=== PATIENT | female | born 1970 | race Caucasian/White ===

== ENCOUNTER 2018-10-19 12:11 | Inpatient (IN) | payer OTHER ==
--- NOTE | 2018-10-19 12:30 | PDOC ---
*Physical Exam - Vital Signs Last Vital Signs Temp Pulse Resp BP Pulse Ox 98.3 F 69 16 118/75 97 10/19/18 12:18 10/19/18 12:18 10/19/18 12:18 10/19/18 12:18 10/19/18 12:18 - Physical Exam Comments: 10/19/18 12:29 The patient was examined by DEDRICK Martin under my direct supervision. I personally evaluated the patient. I concur with the above findings and the plan of care. ED Treatment Course - LABORATORY CBC & Chemistry Diagram: 10/21/18 06:30 10/21/18 06:30 *DC/Admit/Observation/Transfer Diagnosis at time of Disposition: Slurred speech - Discharge Dispostion Condition at time of disposition: Stable - Referrals - Patient Instructions - Post Discharge Activity
--- NOTE | 2018-10-19 13:46 | PDOC ---
History of Present Illness <Montez Zeng - Last Filed: 10/19/18 16:23> - General History Source: Patient - History of Present Illness Timing/Duration: other (2 days) Associated Symptoms: reports: headaches. denies: nausea/vomiting <Liv Mahoney - Last Filed: 10/19/18 16:43> - General Chief Complaint: Weakness Stated Complaint: SLURRED SPEECH Time Seen by Provider: 10/19/18 12:28 NIH Stroke Scale - Last Known Well Date/Time & Onset Date Last Known Well: 10/17/18 Time Last Known Well: 10:00 - Initial Evaluation Level of consciousness: Alert Ask patient the month and their age: Answers both correctly Ask patient to open & close eyes; make fist and let go: Obeys both correctly Best gaze (horizontal eye movement): Normal Visual field testing: No visual field loss Facial paresis (Show teeth/raise eyebrows/close eyes tight): Minor paralysis ( flattened nasolabial fold, asymmetry on smiling) Motor Function: Left Arm: Normal Motor Function: Right Arm: Drift Motor Function: Left Leg: Normal (extends leg 30 degrees for 5 seconds without drift) Motor Function: Right Leg: Normal (extends leg 30 degrees for 5 seconds without drift) Limb Ataxia: No ataxia Sensory(Use pinprick test arms,legs,trunk,face/side to side): Normal Best language (Describe picture, name items, read sentences): No Aphasia Dysarthria (read several words): Mild to moderate slurring of words Extinction and Inattention: No abnormality - Total Score NIH Stroke Scale Score: 3 <Montez Zeng - Last Filed: 10/19/18 16:23> tPA Exclusion checklist 3-4.5h - Time Elapsed Date last known well: 10/17/18 Time last known well: 10:00 Elaspsed time: 2 Day(s) and 6 Hour(s) and 23 Minutes - Thrombolytic Therapy Candidate Is patient eligible for thrombolytic therapy: No - Exclusion Criteria 3-4.5 hr SBP greater than 185 or DBP greater than 110mmHg despite tx: No Recent IC/spinal surgery,head trauma or stroke<3mos.: No Hx IC hemorrhage, IC neoplasm, AV malformation or aneurysm: No Active internal bleeding: No Blding diathesis(low plt ct, inc PTT,INR>1.7 or use of NOAC): No Symptoms suggest subarachnoid hemorrhage: No CT demonstrates multilobar infarct(>1/3 cerebral hemiphere): No Arterial puncture at noncompressible site in previous 7 days: No Blood glucose concentration less than 50mg/dL (2.7mmol/L): No - Relative Exclusion Criteria 3-4.5 hr Life expectancy <1 yr or severe co-morbid illness: No : No Patient/family refused: No Rapid improvement: No Stroke severity too mild: Yes Recent acute VA (w/in previous 3 months): No Seizure at onset with postictal residual neuro impairments: No Major surgery or serious trauma w/in previous 14 days: No Recent GI or hemorrhage (w/in previous 21 days): No - Add'l Relative Exclusion 3-4.5 hr Age > 80: No Hx of both diabetes AND prior ischemic stroke: No Taking an oral anticoagulant regardless of INR: No NIHSS >25: No - Ineligibility reason(s) Reasons No tPA given: Outside of window - delayed arrival <Montez Zeng - Last Filed: 10/19/18 16:23> Past History <Montez Zeng - Last Filed: 10/19/18 16:23> - Past Medical History COPD: No CHF: No Psychiatric Problems: Yes (BIPOLAR) Other medical history: HYPOTHYROID - Immunization History Immunization Up to Date: No - Suicide/Smoking/Psychosocial Hx Smoking Status: Yes Smoking History: Never smoked Number of Cigarettes Smoked Daily: 10 Hx Alcohol Use: No Drug/Substance Use Hx: No <Liv Mahoney - Last Filed: 10/19/18 16:43> - Past Medical History Allergies/Adverse Reactions: Allergies Allergy/AdvReac Type Severity Reaction Status Date / Time Penicillins Allergy Verified 10/19/18 12:18 Home Medications: Ambulatory Orders Aripiprazole [Abilify -] 20 mg PO DAILY 05/27/13 Bupropion HCl [Wellbutrin Xl] 450 mg PO DAILY 05/27/13 Levothyroxine Sodium [Synthroid] 88 mcg PO DAILY 10/19/18 [place] Carbonate [Eskalith -] 900 mg PO HS 10/19/18 Review of Systems - Review of Systems Constitutional: No: Fever Respiratory: No: Shortness of Breath Cardiac (ROS): No: Chest Pain Neurological: Yes: Headache, Ataxia. No: Numbness, Seizure, Tremors, Dizziness <Liv Mahoney - Last Filed: 10/19/18 16:43> *Physical Exam - Vital Signs Last Vital Signs Temp Pulse Resp BP Pulse Ox 98.3 F 69 16 118/75 97 10/19/18 12:18 10/19/18 12:18 10/19/18 12:18 10/19/18 12:18 10/19/18 12:18 <Montez Zeng - Last Filed: 10/19/18 16:23> - Vital Signs Last Vital Signs Temp Pulse Resp BP Pulse Ox 98.3 F 69 16 118/75 97 10/19/18 12:18 10/19/18 12:18 10/19/18 12:18 10/19/18 12:18 10/19/18 12:18 - Physical Exam General Appearance: Yes: Appropriately Dressed. No: Apparent Distress Neck: positive: Supple Respiratory/Chest: negative: Respiratory Distress Neurologic: positive: Fully Oriented, Alert, Normal Mood/Affect, Motor Strength 5/5, Finger to Nose, Other (fingers mildly tremulous b/l on exam but no obvious drift, no obvious faial asymmetry). negative: Facial Droop (No ataxia, no drift ), Sensory Deficit, Confused, Disoriented <Liv Mahoney - Last Filed: 10/19/18 16:43> Moderate Sedation - Procedure Monitoring Vital Signs: Procedure Monitoring Vital Signs Temperature 98.3 F 10/19/18 12:18 Pulse Rate 69 10/19/18 12:18 Respiratory Rate 16 10/19/18 12:18 Blood Pressure 118/75 10/19/18 12:18 O2 Sat by Pulse Oximetry (%) 97 10/19/18 12:18 <Montez Zeng - Last Filed: 10/19/18 16:23> - Procedure Monitoring Vital Signs: Procedure Monitoring Vital Signs Temperature 98.3 F 10/19/18 12:18 Pulse Rate 69 10/19/18 12:18 Respiratory Rate 16 10/19/18 12:18 Blood Pressure 118/75 10/19/18 12:18 O2 Sat by Pulse Oximetry (%) 97 10/19/18 12:18 <Liv Mahoney - Last Filed: 10/19/18 16:43> ED Treatment Course - LABORATORY CBC & Chemistry Diagram: 10/19/18 13:32 10/19/18 13:32 - ADDITIONAL ORDERS Additional order review: Laboratory Results 10/19/18 10/19/18 10/19/18 13:38 13:32 13:32 Sodium Potassium Chloride Carbon Dioxide Anion Gap BUN Creatinine Creat Clearance w eGFR Random Glucose Hemoglobin A1c % 4.9 Calcium Total Bilirubin AST ALT Alkaline Phosphatase Total Protein Albumin TSH 1.78 Resin T3 Uptake Serum , Qual Urine Color Yellow Urine Appearance Slcloudy Urine pH 6.0 Ur Specific [place] 1.028 Urine Protein 1+ H Urine Glucose (UA) Negative Urine Ketones Negative Urine Blood Negative Urine Nitrite Negative Urine Bilirubin Negative Urine Urobilinogen Negative Ur Leukocyte Esterase Trace Urine WBC (Auto) 6 Urine RBC (Auto) 8 Ur Epithelial Cells Rare Urine Bacteria Rare Hyaline Casts 3 Urine Mucus Few Alcohol, Quantitative 10/19/18 10/19/18 13:32 13:32 Sodium 139 Potassium 4.5 Chloride 108 H Carbon Dioxide 27 Anion Gap 4 L BUN 10 Creatinine 0.9 Creat Clearance w eGFR > 60 Random Glucose 85 Hemoglobin A1c % Calcium 8.3 L Total Bilirubin 0.3 AST 44 H ALT 32 Alkaline Phosphatase 52 Total Protein 6.8 Albumin 3.5 TSH Resin T3 Uptake 34.4 Serum , Qual Negative Urine Color Urine Appearance Urine pH Ur Specific [place] Urine Protein Urine Glucose (UA) Urine Ketones Urine Blood Urine Nitrite Urine Bilirubin Urine Urobilinogen Ur Leukocyte Esterase Urine WBC (Auto) Urine RBC (Auto) Ur Epithelial Cells Urine Bacteria Hyaline Casts Urine Mucus Alcohol, Quantitative < 3.0 10/19/18 13:32 RBC 4.28 MCV 91.5 MCHC 32.3 RDW 13.9 MPV 7.8 Neutrophils % 69.5 Lymphocytes % 20.6 Monocytes % 6.1 Eosinophils % 2.6 Basophils % 1.2 <Monetz Zeng - Last Filed: 10/19/18 16:23> - LABORATORY CBC & Chemistry Diagram: 10/19/18 13:32 10/19/18 13:32 - RADIOLOGY Radiology Studies Ordered: Category Date Time Status HEAD CT WITHOUT CONTRAST [CT] Stat CT Scan 10/19/18 13:05 Ordered <Liv Mahoney - Last Filed: 10/19/18 16:43> Medical Decision Making - Medical Decision Making 10/19/18 13:41 48 yo F, h/o bipolar on lithium, here w/ slurred speech x 2 days. Also reports vague JORDAN and that "I am tripping over my feet" per pt. No dizziness, vertigo, visual changes, sensory changes or focal weakness. States she did not come in earlier because "I didn't think it was anything" per pt. State she saw her psychiatrist this am who told her to come in for labs including lithium lvl. Last lithium level was ~2 months ago and nl per pt. States she has not been on meds that long See exam Slurred speech w/ ataxia and JORDAN x 2 days Slow speech in ED and mildly tremulous fingers b/l, no obvious ataxia and non- focal R/o CVA, r/o lithium toxicity -CT[facility] -labs -dispo pending 10/19/18 14:54 10/19/18 15:47 Labs and CTH unremarkable. [place] pending and m/l will not come back today. Pt evaluated by Dr Rosales who states based on his exam, pt has minor facial asymmetry and ?RUE drift. DTRs appears intact. Suspects CVA. Will get neuro c/s for MRI and admit at this time. Dr Walter, pt's outside psych, made aware of disposition. <Lvi Mahoney - Last Filed: 10/19/18 16:43> *DC/Admit/Observation/Transfer <Montez Zeng - Last Filed: 10/19/18 16:23> - Discharge Dispostion Decision to Admit order: Yes <Liv Mahoney - Last Filed: 10/19/18 16:43> Diagnosis at time of Disposition: Slurred speech - Discharge Dispostion Condition at time of disposition: Fair
[2018-10-19 13:51] LABS: BASO % 1.2 % (0-2.0); EOS % 2.6 % (0-4.5); HEMATOCRIT 39.2 % (32.4-45.2); HEMOGLOBIN 12.7 GM/dL (10.7-15.3); LYMPH % 20.6 % (8-40); MCH 29.6 pg (25.7-33.7); MCHC 32.3 g/dl (32.0-36.0); MEAN CELL VOLUME 91.5 fl (80-96); MEAN PLT VOLUME 7.8 fl (7.5-11.1); MONO % 6.1 % (3.8-10.2); NEUT % 69.5 % (42.8-82.8); PLATELET COUNT 284 K/MM3 (134-434); RBC 4.28 M/mm3 (3.60-5.2); RDW 13.9 % (11.6-15.6)
[2018-10-19 13:57] LABS: URINE APPEARANCE SLCLOUDY; URINE BILIRUBIN NEGATIVE (<2.0 mg/dL); URINE COLOR YELLOW; URINE GLUCOSE (UA) NEGATIVE (NEGATIVE); URINE KETONE NEGATIVE (NEGATIVE); URINE LEUK ESTERASE TRACE (NEGATIVE); URINE NITRITE NEGATIVE (NEGATIVE); URINE PROTEIN 1+ (NEGATIVE); URINE UROBILINOGEN NEGATIVE mg/dL (0.2-1.0)
[2018-10-19 14:05] LABS: EPI CELLS RARE /HPF (FEW); URINE BACTERIA RARE /hpf (NONE SEEN); URINE HYALINE CAST 3 /lpf; URINE MUCUS FEW
[2018-10-19 14:34] LABS: ALBUMIN 3.5 g/dl (3.4-5.0); ALK PHOS 52 U/L (45-117); ANION GAP 4 MMOL/L (8-16); BILIRUBIN,TOTAL 0.3 mg/dL (0.2-1); BLOOD UREA NITROGEN 10 mg/dL (7-18); CALCIUM 8.3 mg/dL (8.5-10.1); CHLORIDE 108 mmol/L (98-107); CO2 27 mmol/L (21-32); CREATININE 0.9 mg/dL (0.55-1.3); GLUCOSE,RANDOM 85 mg/dL (74-106); POTASSIUM 4.5 mmol/L (3.5-5.1); SGOT/AST 44 U/L (15-37); SGPT/ALT 32 U/L (13-61); SODIUM 139 mmol/L (136-145); TOT PROT 6.8 g/dl (6.4-8.2)
[2018-10-19] MEDS ORDERED: ASPIRIN 325 MG TABLET PO ONE (16:25)
[2018-10-19] MEDS ORDERED: ASPIRIN 325 MG TABLET ONE (16:40)
--- NOTE | 2018-10-19 16:42 | HP ---
CHIEF COMPLAINT: Slurred speech x2 days Psychiatrist/PCP: Dr Powers in [place] [phone] HISTORY OF PRESENT ILLNESS: Pt is a 48 yo obese F, with PMHx of hypothyroidism , bipolar disorder (recently started on lithium), presenting with slurred speech and abnormal gait x 2 days. Pt describes a sudden slurring of her speech she said noticed also by her . No dysphagia, no difficulty swallowing. No prior trauma, no syncope, no falls. No prior URTI, no ear ache. She describes an associated L sided vague headache, increased forgetfulness for the past 2 weeks, and dizziness. No photophobia or neck stiffness. She has also noticed a tiltt to her left side while walking over the past two days that is new. No obvious weakness or heaviness, no parasthesias noted. Pt came in today after she spoke with her psychiatrist. She has been bipolar for over 20years and had been on Wellbutrin, trazodone and abilify. 2 months ago she was put on [place]. No polyuria or polyphagia. Her psychiatrist recommended lithium levels be drawn. ED spoke with Neurology- Dr Galaviz who recommended MRI ER course was notable for: (1) CT head-negative for acute pathology (2) ASA 81 (3) Recent Travel: PAST MEDICAL HISTORY: PAST SURGICAL HISTORY: B/L shoulder sx Uterine ablation April 2018 Fibroid sx Social History: Smoking: Smoked 1/2 pack x20 years, quit 1 year ago, Alcohol:Denies Drugs: Smokes marijuana Family History: Works an office job Mother 79- [place] uterus, [place] lung Father 79- Orthopedic sxs Sister-51yrs old-Breast [place] G0, Menopausal-April 2018 Allergies Penicillins Allergy (Verified 10/19/18 12:18) HOME MEDICATIONS: Home Medications Medication Instructions Recorded Aripiprazole [Abilify -] 20 mg PO DAILY 05/27/13 Bupropion HCl [Wellbutrin Xl] 450 mg PO DAILY 05/27/13 Levothyroxine Sodium [Synthroid] 88 mcg PO DAILY 10/19/18 [place] Carbonate [Eskalith -] 900 mg PO HS 10/19/18 REVIEW OF SYSTEMS CONSTITUTIONAL: Absent: fever, chills, diaphoresis, generalized weakness, malaise, loss of appetite, weight change HEENT: Absent: rhinorrhea, nasal congestion, throat pain, throat swelling, difficulty swallowing, mouth swelling, ear pain, eye pain, visual changes CARDIOVASCULAR: Absent: chest pain, syncope, palpitations, irregular heart rate, lightheadedness , peripheral edema RESPIRATORY: Absent: cough, shortness of breath, dyspnea with exertion, orthopnea, wheezing, stridor, hemoptysis GASTROINTESTINAL: Absent: abdominal pain, abdominal distension, nausea, vomiting, diarrhea, constipation, melena, hematochezia GENITOURINARY: Absent: dysuria, frequency, urgency, hesitancy, hematuria, flank pain, genital pain MUSCULOSKELETAL: Absent: myalgia, arthralgia, joint swelling, back pain, neck pain SKIN: Absent: rash, itching, pallor HEMATOLOGIC/IMMUNOLOGIC: Absent: easy bleeding, easy bruising, lymphadenopathy, frequent infections ENDOCRINE: Absent: unexplained weight gain, unexplained weight loss, heat intolerance, cold intolerance NEUROLOGIC: Absent: headache+, focal weakness or paresthesias, dizziness, unsteady gait+, seizure, mental status changes, bladder or bowel incontinence PSYCHIATRIC: Absent: anxiety, depression, suicidal or homicidal ideation, hallucinations. PHYSICAL EXAMINATION Vital Signs - 24 hr 10/19/18 12:18 Temperature 98.3 F Pulse Rate 69 Respiratory 16 Rate Blood Pressure 118/75 O2 Sat by Pulse 97 Oximetry (%) GENERAL: Obese female, Awake, alert, and fully oriented, in no acute distress. HEAD: Normal with no signs of trauma. EYES: Pupils equal, round and reactive to light, extraocular movements intact, sclera anicteric, conjunctiva clear. No lid lag. EARS, NOSE, THROAT: Ears normal, nares patent, oropharynx clear without exudates. Moist mucous membranes. NECK: Normal range of motion, supple, no JVD LUNGS: Breath sounds equal, clear to auscultation bilaterally. No wheezes, and no crackles. HEART: Regular rate and rhythm, normal S1 and S2 without murmur ABDOMEN: Obese, Soft, nontender, not distended, normoactive bowel sounds MUSCULOSKELETAL: Normal range of motion at all joints. No bony deformities or tenderness. No CVA tenderness. LOWER EXTREMITIES: 2+ pulses, warm, well-perfused. No calf tenderness. No peripheral edema. NEUROLOGICAL: Flattened nasolabial fold on R, reduced touch sensation LUE, reduced strength 4/5 LUE, No drift UE, reflexes 2+ globally. Cranial nerves II-XII intact. Slurred speech. gait wide based, with slight tilt to left. PSYCHIATRIC: Cooperative. Good eye contact. Appropriate mood and affect. NIH scale 3 CBC, BMP 10/19/18 13:32 10/19/18 13:32 Laboratory Results - last 24 hr 10/19/18 10/19/18 10/19/18 13:32 13:32 13:32 WBC 8.0 RBC 4.28 Hgb 12.7 Hct 39.2 MCV 91.5 MCH 29.6 MCHC 32.3 RDW 13.9 Plt Count 284 MPV 7.8 Absolute Neuts (auto) 5.6 Neutrophils % 69.5 Lymphocytes % 20.6 Monocytes % 6.1 Eosinophils % 2.6 Basophils % 1.2 Nucleated RBC % 0 Sodium 139 Potassium 4.5 Chloride 108 H Carbon Dioxide 27 Anion Gap 4 L BUN 10 Creatinine 0.9 Creat Clearance w eGFR > 60 Random Glucose 85 Hemoglobin A1c % Calcium 8.3 L Total Bilirubin 0.3 AST 44 H ALT 32 Alkaline Phosphatase 52 Total Protein 6.8 Albumin 3.5 TSH Resin T3 Uptake 34.4 Serum , Qual Negative Urine Color Urine Appearance Urine pH Ur Specific [place] Urine Protein Urine Glucose (UA) Urine Ketones Urine Blood Urine Nitrite Urine Bilirubin Urine Urobilinogen Ur Leukocyte Esterase Urine WBC (Auto) Urine RBC (Auto) Ur Epithelial Cells Urine Bacteria Hyaline Casts Urine Mucus Alcohol, Quantitative < 3.0 10/19/18 10/19/18 10/19/18 13:32 13:32 13:38 WBC RBC Hgb Hct MCV MCH MCHC RDW Plt Count MPV Absolute Neuts (auto) Neutrophils % Lymphocytes % Monocytes % Eosinophils % Basophils % Nucleated RBC % Sodium Potassium Chloride Carbon Dioxide Anion Gap BUN Creatinine Creat Clearance w eGFR Random Glucose Hemoglobin A1c % 4.9 Calcium Total Bilirubin AST ALT Alkaline Phosphatase Total Protein Albumin TSH 1.78 Resin T3 Uptake Serum , Qual Urine Color Yellow Urine Appearance Slcloudy Urine pH 6.0 Ur Specific [place] 1.028 Urine Protein 1+ H Urine Glucose (UA) Negative Urine Ketones Negative Urine Blood Negative Urine Nitrite Negative Urine Bilirubin Negative Urine Urobilinogen Negative Ur Leukocyte Esterase Trace Urine WBC (Auto) 6 Urine RBC (Auto) 8 Ur Epithelial Cells Rare Urine Bacteria Rare Hyaline Casts 3 Urine Mucus Few Alcohol, Quantitative Ambulatory Orders Aripiprazole [Abilify -] 20 mg PO DAILY 05/27/13 Bupropion HCl [Wellbutrin Xl] 450 mg PO DAILY 05/27/13 Levothyroxine Sodium [Synthroid] 88 mcg PO DAILY 10/19/18 [place] Carbonate [Eskalith -] 900 mg PO HS 10/19/18 traZODone HCL [Trazodone HCl] 200 mg PO HS 10/19/18 ASSESSMENT/PLAN: Pt is a 48 yo obese F, with PMHx of hypothyroidism, bipolar disorder (recently started on lithium), presenting with slurred speech and abnormal gait x 2 days. #R/O Cerebellar Stroke NIH scale 3 CT head- negative, pending MRI/MRA per neuro Neuro- Dr Galaviz on board TSH-1.78, free T3-34, HamL5x-6.9 Statins ASA PT Speech and swallow Pt out of TPA window Lipid profile EKG #bipolar disorder [place] level pending Stable at this time, consider Psych input #Hypothyroidism Resume synthroid TSH, free T3- wnl #Obesity BMI-40.4 Weight loss counselling #FEN No standing fluids Monitor lytes, replete as needed Sodium free diet #DVT Lovenox 40sq #Dispo Tele Obs Visit type - Emergency Visit Emergency Visit: Yes ED Registration Date: 10/19/18 Care time: The patient presented to the Emergency Department on the above date and was hospitalized for further evaluation of their emergent condition. - New Patient This patient is new to me today: Yes Date on this admission: 10/19/18 - Critical Care Critical Care patient: No
--- NOTE | 2018-10-19 18:11 | EKG ---
Test Reason : Blood Pressure : / mmHG Vent. Rate : 071 BPM Atrial Rate : 071 BPM P-R Int : 196 ms QRS Dur : 086 ms QT Int : 408 ms P-R-T Axes : 062 015 009 degrees QTc Int : 443 ms NORMAL SINUS RHYTHM NORMAL ECG WHEN COMPARED WITH ECG OF 13-FEB-2011 17:20, NO SIGNIFICANT CHANGE WAS FOUND Confirmed by VALERIE SAUL MD ([id number]) on 10/19/2018 6:10:57 PM Referred By: Confirmed By:VALERIE SAUL MD
--- NOTE | 2018-10-19 19:16 | PN ---
Teaching Attending Note Name of Resident: Vera Gill ATTENDING PHYSICIAN STATEMENT I saw and evaluated the patient. I reviewed the resident's note and discussed the case with the resident. I agree with the resident's findings and plan as documented. SUBJECTIVE: Patient is a 48 year old woman with PMH of hypothyroidism, penicillin allergy and bipolar disorder on lithium, who presents with slurred speech x 2 days. Also reports vague JORDAN and that "I am tripping over my feet" per pt. No dizziness , vertigo, visual changes, sensory changes or focal weakness. States she did not come in earlier because "I didn't think it was anything" per patient. State she saw her psychiatrist this am who told her to come in for labs including lithium level. Last lithium level was ~2 months ago and normal as per patient. States she has not been on meds that long. NIHSS was 3. OBJECTIVE: Alert Vital Signs Period Temp Pulse Resp BP Sys/[place] Pulse Ox Last 24 Hr 98.3 F 69 16 118/75 97 HEENT: No Jaundice, eye redness or discharge, PERRLA, EOMI. Normocephalic, atraumatic. External ears are normal and hearing is grossly intact. No nasal discharge. Neck: Supple, nontender. No palpable adenopathy or thyromegaly. No JVD Chest: Good effort. Clear to auscultation and percussion. Heart: Regular. No S3, rub or murmur Abdomen: Not distended, soft, nontender and no HSM. No rebound or guarding. Normoactive bowel sounds. Ext: Peripheral pulses intact. No leg edema. Skin: Warm and dry. No petechiae, rash or ecchymosis. Neuro: Alert. Oriented x3. CN 2-12 grossly intact. Flattened nasolabial fold on R, reduced touch sensation LUE, reduced strength 4/5 LUE, No drift UE, reflexes 2+ globally. Slurred speech. gait wide based, with slight tilt to left. Psych: Cooperative. Good eye contact. Good insight. Appropriate mood and affect. Current Medications Generic Name Dose Route Start Last Admin Trade Name Freq PRN Reason Stop Dose Admin Aspirin 81 mg 10/20/18 10:00 Ecotrin - PO DAILY MAY Atorvastatin Calcium 80 mg 10/19/18 22:00 Lipitor - PO HS MAY Home Medications Medication Instructions Recorded Aripiprazole [Abilify -] 20 mg PO DAILY 05/27/13 Bupropion HCl [Wellbutrin Xl] 450 mg PO DAILY 05/27/13 Levothyroxine Sodium [Synthroid] 88 mcg PO DAILY 10/19/18 [place] Carbonate [Eskalith -] 900 mg PO HS 10/19/18 Abnormal Lab Results 10/19/18 10/19/18 13:32 13:38 Chloride 108 H Anion Gap 4 L Calcium 8.3 L AST 44 H Urine Protein 1+ H ASSESSMENT AND PLAN: 1. CVA - Head CT scan is negative and MRI is scheduled. No arrhythmia on EKG. Findings consistent with CVA, but she is outside the window for tPA. [place] level is pending. Got aspirin and will continue lipitor, neurochecks, speech and swallow evaluation, PT consult, fall precautions and neurology consult. Monitor on telemetry, get ECHO and carotid doppler. 2. Tobacco Use We will provide patient all the necessary assistance to facilitate smoking cessation and prescribe Nicotine patch. 3. DVT prophylaxis - Lovenox 40 mg SQ q 24 hours. 4. Advance directives - Full code 5. Obesity - Will provide patient all the necessary assistance, counseling and positive reinforcement to facilitate weight loss. Consult lead housekeeper.
[2018-10-19] MEDS ORDERED: ENOXAPARIN NA (PORCINE) 40 MG/0.4 ML DISP.SYRIN SQ ONE (20:35)
[2018-10-19] MEDS: ENOXAPARIN NA (PORCINE) 40 MG/0.4 ML DISP.SYRIN SQ SCH (20:38)
--- NOTE | 2018-10-19 21:05 | CON.NEURO ---
Consult - Alcohol/Substance Use Hx Alcohol Use: No - Smoking History Smoking history: Never smoked Aproximately how many cigarettes per day: 10 Home Medications - Allergies Allergies/Adverse Reactions: Allergies Allergy/AdvReac Type Severity Reaction Status Date / Time Penicillins Allergy Verified 10/19/18 12:18 - Home Medications Home Medications: Ambulatory Orders Aripiprazole [Abilify -] 20 mg PO DAILY 05/27/13 Bupropion HCl [Wellbutrin Xl] 450 mg PO DAILY 05/27/13 Levothyroxine Sodium [Synthroid] 88 mcg PO DAILY 10/19/18 [place] Carbonate [Eskalith -] 900 mg PO HS 10/19/18 Physical Exam-Neuro Vital Signs: Vital Signs Temperature 98.3 F 10/19/18 12:18 Pulse Rate 69 10/19/18 12:18 Respiratory Rate 16 10/19/18 12:18 Blood Pressure 118/75 10/19/18 12:18 O2 Sat by Pulse Oximetry (%) 97 10/19/18 12:18 Labs: CBC, BMP 10/19/18 13:32 10/19/18 13:32 Assessment/Plan CC Slurring of speech HPI 48 year old female hsitory of bipolar disorder, she is on abilify, wellbutrin, trazadone, synthroid , lithium. Patient was started on [place] recenlty. She denies any headahce, weakness , LOC, seizure like activity, or numbness. Lately she does complainin of memory difficulty and she has been forgetting things. ct scan of brain isnormal PAST MEDICAL HISTORY: as above PAST SURGICAL HISTORY: B/L shoulder sx Uterine ablation April 2018 Fibroid sx Social History: Smoking: Smoked 1/2 pack x20 years, quit 1 year ago, Alcohol:Denies Drugs: Smokes marijuana Family History: Works an office job Mother 79- [place] uterus, [place] lung Father 79- Orthopedic sxs Sister-51yrs old-Breast [place] G0, Menopausal-April 2018 Allergies Penicillins Allergy (Verified 10/19/18 12:18) HOME MEDICATIONS: Home Medications Medication Instructions Recorded Aripiprazole [Abilify -] 20 mg PO DAILY 05/27/13 Bupropion HCl [Wellbutrin Xl] 450 mg PO DAILY 05/27/13 Levothyroxine Sodium [Synthroid] 88 mcg PO DAILY 10/19/18 [place] Carbonate [Eskalith -] 900 mg PO HS 10/19/18 FH,ROS is normal Neurological Examination: Alert oriented x 3, no neck stiffness speech is slurred( she feels her speech is not normal), eomi, pupils reactive, no face asymmetry motor 5/5 all ext sensation is normal ct head is normal Assessment/Plan 48 year old female history of bipolar on five different medication, [place] was recently started. Neuro exam is normal, except slruring of speech. ct head is normal. CLinically, less likley to be stroke Plan: MRI of brain , further work up if mri is positive for stroke - Psych Consult , if needed for Bipolar management. Thanking you so much Jj Galaviz MD
[2018-10-19 22:16] VITALS: BMI 41.8
[2018-10-19] MEDS ORDERED: MELATONIN 5 MG TABLETS PO ONE (22:33)
[2018-10-19] MEDS: ATORVASTATIN CA 80 MG TABLET (FP) PO SCH (22:46)
[2018-10-20 07:29] LABS: HEMATOCRIT 38.6 % (32.4-45.2); HEMOGLOBIN 12.4 GM/dL (10.7-15.3); MCH 29.3 pg (25.7-33.7); MCHC 32.2 g/dl (32.0-36.0); MEAN CELL VOLUME 90.9 fl (80-96); PLATELET COUNT 248 K/MM3 (134-434); RBC 4.24 M/mm3 (3.60-5.2); RDW 13.5 % (11.6-15.6); WHITE BLOOD COUNT 6.1 K/mm3 (4.0-10.0)
[2018-10-20 07:48] LABS: PROTHROMBIN TIME (PATIENT) 11.8 SEC (9.7-13.0)
[2018-10-20 08:10] LABS: CHOLESTEROL 188 mg/dL (50-200); HDL CHOLESTEROL 68 mg/dL (40-60); TRIGLYCERIDES 173 mg/dL (0-150)
[2018-10-20 08:14] LABS: ALBUMIN 3.1 g/dl (3.4-5.0); ALK PHOS 49 U/L (45-117); ANION GAP 6 MMOL/L (8-16); BILIRUBIN,TOTAL 0.5 mg/dL (0.2-1); BLOOD UREA NITROGEN 10 mg/dL (7-18); CALCIUM 8.2 mg/dL (8.5-10.1); CHLORIDE 109 mmol/L (98-107); CO2 25 mmol/L (21-32); CREATININE 0.8 mg/dL (0.55-1.3); GLUCOSE,RANDOM 83 mg/dL (74-106); MAGNESIUM 2.2 mg/dL (1.8-2.4); PHOSPHOROUS 3.6 mg/dL (2.5-4.9); POTASSIUM 4.1 mmol/L (3.5-5.1); SGOT/AST 30 U/L (15-37); SGPT/ALT 27 U/L (13-61); SODIUM 140 mmol/L (136-145)
--- NOTE | 2018-10-20 08:52 | PN ---
Progress Note (short form) - Note Progress Note: 48 year old female hsitory of bipolar disorder, she is on abilify, wellbutrin, trazadone, synthroid , lithium. Patient was started on [place] recenlty. She denies any headahce, weakness , LOC, seizure like activity, or numbness. Lately she does complainin of memory difficulty and she has been forgetting things. ct scan of brain is normal. mri of brain pending, carotid ultrasound is normal. and psych medication are on hold. HOME MEDICATIONS: Home Medications Medication Instructions Recorded Aripiprazole [Abilify -] 20 mg PO DAILY 05/27/13 Bupropion HCl [Wellbutrin Xl] 450 mg PO DAILY 05/27/13 Levothyroxine Sodium [Synthroid] 88 mcg PO DAILY 10/19/18 [place] Carbonate [Eskalith -] 900 mg PO HS 10/19/18 Neurological Examination: Alert oriented x 3, no neck stiffness speech is better.eomi, pupils reactive, no face asymmetry motor 5/5 all ext sensation is normal ct head is normal, carotid ultrasound is normal mri of brain pending Assessment/Plan 48 year old female history of bipolar on five different medication, [place] was recently started. Neuro exam is normal, except slruring of speech. ct head and carotid ultrasound is normalis normal. CLinically, less likley to be stroke Plan: MRI of brain , further work up if mri is positive for stroke - after mri of brain , her psych medication can be restarted except ? [place] / may consult psych to review medication. Thanking you so much Jj Galaviz MD
--- NOTE | 2018-10-20 08:57 | PN ---
Teaching Attending Note Name of Resident: Millie Portillo ATTENDING PHYSICIAN STATEMENT I saw and evaluated the patient. I reviewed the resident's note and discussed the case with the resident. I agree with the resident's findings and plan as documented. SUBJECTIVE: Patient is feeling better with no acute distress. No shortness of breaths, no nausea at this time. Speech back to her norms as per patient. OBJECTIVE: Vital Signs Temperature 97.8 F 10/20/18 06:00 Pulse Rate 58 L 10/20/18 06:00 Respiratory Rate 16 10/20/18 06:00 Blood Pressure 106/55 L 10/20/18 06:00 O2 Sat by Pulse Oximetry (%) 99 10/19/18 22:00 GENERAL: Obese female, Awake, alert, and fully oriented, in no acute distress. HEAD: Normal with no signs of trauma. EYES: Pupils equal, round and reactive to light, extraocular movements intact, sclera anicteric, conjunctiva clear. EARS, NOSE, THROAT: Ears normal, oropharynx clear without exudates. Moist mucous membranes. NECK: Normal range of motion, supple, no JVD LUNGS: Breath sounds equal, clear to auscultation bilaterally. No wheezes, and no crackles. HEART: Regular rate and rhythm, normal S1 and S2 without murmur ABDOMEN: Obese, Soft, nontender, not distended, normoactive bowel sounds EXTREMITIES: 2+ pulses, warm, well-perfused. No calf tenderness. No peripheral edema. NEUROLOGICAL: Flattened nasolabial fold on R, reduced touch sensation LUE, reduced strength 4/5 LUE. Cranial nerves II-XII intact. normal speech. gait not observed . PSYCHIATRIC: Cooperative. Good eye contact. Appropriate mood and affect. NIH scale 3 CBCD WBC 6.1 K/mm3 (4.0-10.0) 10/20/18 06:30 RBC 4.24 M/mm3 (3.60-5.2) 10/20/18 06:30 Hgb 12.4 GM/dL (10.7-15.3) 10/20/18 06:30 Hct 38.6 % (32.4-45.2) 10/20/18 06:30 MCV 90.9 fl (80-96) 10/20/18 06:30 MCHC 32.2 g/dl (32.0-36.0) 10/20/18 06:30 RDW 13.5 % (11.6-15.6) 10/20/18 06:30 Plt Count 248 K/MM3 (134-434) 10/20/18 06:30 MPV 8.0 fl (7.5-11.1) 10/20/18 06:30 CMP Sodium 140 mmol/L (136-145) 10/20/18 06:30 Potassium 4.1 mmol/L (3.5-5.1) 10/20/18 06:30 Chloride 109 mmol/L (98-107) H 10/20/18 06:30 Carbon Dioxide 25 mmol/L (21-32) 10/20/18 06:30 Anion Gap 6 MMOL/L (8-16) L 10/20/18 06:30 BUN 10 mg/dL (7-18) 10/20/18 06:30 Creatinine 0.8 mg/dL (0.55-1.3) 10/20/18 06:30 Creat Clearance w eGFR > 60 (>60) 10/20/18 06:30 Random Glucose 83 mg/dL (74-106) 10/20/18 06:30 Calcium 8.2 mg/dL (8.5-10.1) L 10/20/18 06:30 Total Bilirubin 0.5 mg/dL (0.2-1) 10/20/18 06:30 AST 30 U/L (15-37) 10/20/18 06:30 ALT 27 U/L (13-61) 10/20/18 06:30 Alkaline Phosphatase 49 U/L (45-117) 10/20/18 06:30 Total Protein 6.0 g/dl (6.4-8.2) L 10/20/18 06:30 Albumin 3.1 g/dl (3.4-5.0) L 10/20/18 06:30 Current Medications Generic Name Dose Route Start Last Admin Trade Name Moizq PRN Reason Stop Dose Admin Aspirin 81 mg 10/20/18 10:00 Ecotrin - PO DAILY MAY Atorvastatin Calcium 80 mg 10/19/18 22:00 10/19/18 22:46 Lipitor - PO 80 mg HS MAY Administration Enoxaparin Sodium 40 mg 10/19/18 20:30 10/19/18 20:38 Lovenox - SQ 40 mg DAILY MAY Administration Home Medications Medication Instructions Recorded Aripiprazole [Abilify -] 20 mg PO DAILY 05/27/13 Bupropion HCl [Wellbutrin Xl] 450 mg PO DAILY 05/27/13 Levothyroxine Sodium [Synthroid] 88 mcg PO DAILY 10/19/18 [place] Carbonate [Eskalith -] 900 mg PO HS 10/19/18 traZODone HCL [Trazodone HCl] 200 mg PO HS 10/19/[id number] CT head- negative. MRI/MRA: Occlusion of left middle cerebral artery ASSESSMENT AND PLAN: Pt is a 48 yo Female , with PMHx of hypothyroidism, bipolar disorder (recently started on lithium), presenting with slurred speech and abnormal gait x 2 days. # Acute left middle Cerebellar artery occlusion, Dr. Galaviz neuro consult appreciated, will get neurosurgery involved dr.Tom murphy for consult, on aspirin and lipitor continue #bipolar disorder on [place] follow the level #Hypothyroidism TSH-1.78, free T3-34, Resume synthroid for now. #Obesity,BMI 40.4, Weight loss counselling DVT: Lovenox 40sq
[2018-10-20] MEDS: ASPIRIN COATED 81 MG TABLET.EC PO SCH (10:04)
[2018-10-20] MEDS: ENOXAPARIN NA (PORCINE) 40 MG/0.4 ML DISP.SYRIN SQ SCH (10:04)
[2018-10-20] MEDS ORDERED: diazePAM 5 MG TABLET PO SCH (12:15)
[2018-10-20] MEDS ORDERED: clonazePAM 0.5 MG TABLET PO ONE (13:10)
--- NOTE | 2018-10-20 14:18 | ECHO ---
Name: CLAUDIO VARELA Exam:Adult Echocardiogram Study Date: 10/20/2018 08:05 AM Age: 48 yrs Reason For Study: r/o cerebellar stroke Height: 66 in Weight: 250 lb BSA: 2.2 m2 MMode/2D Measurements & Calculations IVSd: 0.91 cm Ao root diam: 3.6 cm LVIDd: 5.3 cm LA dimension: 3.8 cm LVIDs: 3.4 cm ACS: 2.2 cm LVPWd: 0.93 cm IVSs: 1.1 cm LVPWs: 1.1 cm EDV(Teich): 132.5 ml ESV(Teich): 48.3 ml Doppler Measurements & Calculations MV E max jewel: 47.4 cm/sec Ao V2 max: 91.1 cm/sec MV A max jewel: 41.2 cm/sec Ao max P.3 mmHg MV E/A: 1.1 Ao V2 mean: 63.9 cm/sec Ao mean P.8 mmHg Ao V2 VTI: 19.3 cm MR max jewel: 412.7 cm/sec TR max jewel: 195.1 cm/sec MR max P.2 mmHg TR max P.3 mmHg Med Peak E' Jewel: 6.0 cm/sec Med E/e': 7.8 Lat Peak E' Jewel: 13.5 cm/sec Lat E/e': 3.5 Procedure A complete two-dimensional transthoracic echocardiogram was performed (2D, M-mode, Doppler and color flow Doppler). Left Ventricle The left ventricular size, thickness and function are normal. The left ventricular ejection fraction is normal. Ejection Fraction = 55-60%. The left ventricular wall motion is normal. Right Ventricle The right ventricle is normal in size and function. Atria Normal left and right atrial size and function. Mitral Valve There is mild mitral regurgitation. Tricuspid Valve There is trace tricuspid regurgitation. There was insufficient TR detected to calculate RV systolic p ressure. Aortic Valve No hemodynamically significant valvular aortic stenosis. No aortic regurgitation is present. Pulmonic Valve There is no pulmonic valvular regurgitation. Great Vessels The aortic root is normal size. Pericardium/Pleura There is no pericardial effusion. Interpretation Summary The left ventricular size, thickness and function are normal The right ventricle is normal in size and function. There is mild mitral regurgitation. There is trace tricuspid regurgitation. MD Aldo Bates 10/20/2018 02:17 PM
[2018-10-20] MEDS ORDERED: FLU VACCINE QUAD 60 MCG/0.5 ML (MDV 18-19) IM ONE (15:15)
--- NOTE | 2018-10-20 15:42 | CONSULT ---
Admitting History and Physical - Admission Chief Complaint: Slurred speech. History Source: Patient Limitations to Obtaining History: No Limitations (Pt. is 48y/o female with hx of bipolar disorder. Taking abilify, wellbutrin, trazadone, synthroid and recently started on lithium. Pt. also with c/o memory problems and forgetfulness. Recent c/o slurred speech, however, Pt. reports this has improved.) - Past Medical History ...LMP: 04/17/18 ...: No (tested in er) - Smoking History Smoking history: Former smoker Have you smoked in the past 12 months: No Aproximately how many cigarettes per day: 10 If you are a former smoker, when did you quit?: 2017 - Alcohol/Substance Use Hx Alcohol Use: No History - Admission Reason For Visit: SLURRED SPEECH - General Mental Status: Alert and Oriented, Awake and Alert, Able to Follow Commands, Anxious Attention: Intact Ability to Follow Directions: Good Head/Neck Control: WFL - Hearing Hearing: Normal Speech Evaluation - Communication Primary Language: [place] Communication: Yes: Within Normal Limits Oral Expression Ability: Yes: No Impairment - Speech Production Apraxia: No Able to Make Needs Known: Yes: WNL Intelligibility: Yes: WNL - Speech Characteristics Voice Loudness: Mildly Soft/Quiet Voice Pitch: Yes: Normal Voice Phonatory-based Quality: Yes: Normal Speech Pattern: Normal Nasal Resonance: Normal Articulation: Yes: Precise Rate of Speech: Intact - Language/Auditory Comprehension Follows: Yes: 1 Stage Simple Commands Observation: Able to respond to yes/no queries: Yes, Yes/No Confusion: No, Comprehends Conversational Speech: Yes - Language/Verbal Expression Able to Respond to Simple Queries: Yes: WNL Able to Communicate Wants and Needs: Yes: WNL Functional Communication Status: Yes: WNL Attention: Yes: Intact - Memory/Perception Short Term Memory: Yes: Mildly Impaired - Swallow Evaluation/Bedside Assessment Current Nutritional Intake: Regular Oral Secretions: Yes: WFL Tracheostomy Present: No Patient on Ventilator: No Dentition: Yes: Adequate Facial Symmetry at Rest: Symmetrical Facial Symmetry on Retraction: Symmetrical Facial Movement: Controlled Sensation: Normal Pucker Lips: Normal Smile: Normal Lingual Movement: Normal Lingual Speed of Movement: Normal Lingual Movement Characteristics: Normal Velopharyngeal Movement: Normal Laryngeal Elevation: WFL Needs Assistance: No Rate of Intake: WFL Labial Seal: WFL Recommendations - Speech Evaluation, Impression/Plan Impression: Receptive and expressive communication within normal limits. Voice and speech production intact at this time. Pt. reports memory difficulty as well as difficulty remaining attentive. Pt. encouraged to engage in cognitively stimulating activities and practice follow-through with simple tasks , e.g. completing simple crossword puzzles and doing mazes. Pt. verbalized understanding but expressed that she is consumed with thoughts of her bipolar disorder. Speech intervention is not indicated at this time. - Disposition Discharge to: To be Determined - Dysphagia Impressions/Plan Swallowing Skills: WFL Dysphagia Impressions: No Impairment Recommendations: Other (Continue to follow with Psych.) - Recommendations Diet Consistency: Regular
--- NOTE | 2018-10-20 15:43 | PN ---
Physical Exam: SUBJECTIVE: Patient seen and examined at bedside this morning. No acute events overnight. Patient reported improvement of symptoms today. Noted minimal slurring of speech, but otherwise, gait has improved. She denies headache, dizziness, dysphagia, blurring of vision, fever, chills, weakness, numbness, nausea, vomiting. Denies chest pain, SOB, palpitations, abdominal pain, diarrhea , urinary symptoms. OBJECTIVE: Vital Signs Period Temp Pulse Resp BP Sys/[place] Pulse Ox Last 24 Hr 97.4 F-98.3 F 52-73 16-20 95-127/55-78 97-99 GENERAL: The patient is awake, alert, and fully oriented, in no acute distress. EYES: PERRLA, EOMI, sclera anicteric, conjunctiva clear. NECK: Soft, supple, trachea midline without LAD LUNGS: Breath sounds equal, clear to auscultation bilaterally. HEART: Regular rate and rhythm, S1, S2 without murmur, rub or gallop. ABDOMEN: Soft, nontender, nondistended, normoactive bowel sounds. EXTREMITIES: 2+ pulses, warm, well-perfused, no edema. NEUROLOGICAL: AAOx3, asymmetric smile, Cranial nerves II through XII grossly intact. Motor strength 5/5 on all extremities, sensation intact. Wide based gait. PSYCH: Normal mood, normal affect. SKIN: Warm, dry, normal turgor, no rashes or lesions noted Laboratory Results - last 24 hr 10/19/18 10/19/18 10/20/18 13:32 13:32 06:30 WBC 6.1 RBC 4.24 Hgb 12.4 Hct 38.6 MCV 90.9 MCH 29.3 MCHC 32.2 RDW 13.5 Plt Count 248 MPV 8.0 PT with INR INR Sodium 139 Potassium 4.5 Chloride 108 H Carbon Dioxide 27 Anion Gap 4 L BUN 10 Creatinine 0.9 Creat Clearance w eGFR > 60 Random Glucose 85 Calcium 8.3 L Phosphorus Magnesium Total Bilirubin 0.3 AST 44 H ALT 32 Alkaline Phosphatase 52 Total Protein 6.8 Albumin 3.5 Triglycerides Cholesterol Total LDL Cholesterol HDL Cholesterol Resin T3 Uptake 34.4 [place] 0.3 L Alcohol, Quantitative < 3.0 10/20/18 10/20/18 10/20/18 06:30 06:30 06:30 WBC RBC Hgb Hct MCV MCH MCHC RDW Plt Count MPV PT with INR 11.80 INR 1.00 Sodium 140 Potassium 4.1 Chloride 109 H Carbon Dioxide 25 Anion Gap 6 L BUN 10 Creatinine 0.8 Creat Clearance w eGFR > 60 Random Glucose 83 Calcium 8.2 L Phosphorus 3.6 Magnesium 2.2 Total Bilirubin 0.5 AST 30 ALT 27 Alkaline Phosphatase 49 Total Protein 6.0 L Albumin 3.1 L Triglycerides 173 H Cholesterol 188 Total LDL Cholesterol 93 HDL Cholesterol 68 H Resin T3 Uptake [place] Alcohol, Quantitative Active Medications Generic Name Dose Route Start Last Admin Trade Name Ce PRN Reason Stop Dose Admin Aspirin 81 mg 10/20/18 10:00 10/20/18 10:04 Ecotrin - PO 81 mg DAILY MAY Administration Atorvastatin Calcium 80 mg 10/19/18 22:00 10/19/18 22:46 Lipitor - PO 80 mg HS MAY Administration Diazepam 10 mg 10/20/18 12:15 10/20/18 14:03 Valium - PO 10/20/18 20:00 10 mg [place] FELLER MAY Administration Enoxaparin Sodium 40 mg 10/19/18 20:30 10/20/18 10:04 Lovenox - SQ 40 mg DAILY MAY Administration ASSESSMENT/PLAN: Patient is a 48 year old female with past medical history of hypothyroidism, bipolar disorder, presented with slurred speech and abnormal gait for 2 days. #Slurred speech and abnormal gait: improving -CT head: No gross acute intracranial pathology -Carotid doppler: No evidence of a high-grade carotid artery stenosis -Echo:LV size, thickness, and function are normal. RV is normal in size and function. Mild MR, trace TR. -Brain MRI without contrast: There are couple of T2 hyperintense foci in the elft periventricular white matter which are nonspecific and may be on the basis of minimal periventricular chronic microvascular ischemic disease changes. No acute intracranial pathology. -Brain MRA without contrast: Occlusion of the left middle cerebral artery from its origin. 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 -Neurology (Dr. Galaviz) consulted. Recommendations appreciated. -Neurosurgery (Dr. Schmidt) consulted. Left a message, office aware. -Speech and swallow evaluation appreciated. -Continue ASA, Statins -Physical therapy #Bipolar disorder -[place] level 0.3 -Will trend lithium level -Continue home Abilify 20mg, Bupropion 300mg daily #Hypothyroidism -Continue home Synthroid 88mcg daily #FEN -Not on any standing fluids -Electrolytes wnl, routine bmp monitoring -Sodium controlled diet #Disposition -full code -stroke tele Visit type - Emergency Visit Emergency Visit: Yes ED Registration Date: 10/20/18 Care time: The patient presented to the Emergency Department on the above date and was hospitalized for further evaluation of their emergent condition. - New Patient This patient is new to me today: Yes Date on this admission: 10/20/18 - Critical Care Critical Care patient: No
[2018-10-20] MEDS ORDERED: traZODone HCL 150 MG TABLET PO PRN (16:03)
[2018-10-20] MEDS ORDERED: clonazePAM 0.5 MG TABLET PO PRN (16:03)
--- NOTE | 2018-10-20 16:17 | EKG ---
Test Reason : Blood Pressure : / mmHG Vent. Rate : 054 BPM Atrial Rate : 054 BPM P-R Int : 190 ms QRS Dur : 092 ms QT Int : 456 ms P-R-T Axes : 034 020 014 degrees QTc Int : 432 ms SINUS BRADYCARDIA OTHERWISE NORMAL ECG WHEN COMPARED WITH ECG OF 19-OCT-2018 12:15, NO SIGNIFICANT CHANGE WAS FOUND Confirmed by MIMA ROMEO MD ([id number]) on 10/20/2018 4:17:09 PM Referred By: Confirmed By:MIMA ROMEO MD
--- NOTE | 2018-10-20 19:58 | PN ---
Progress Note (short form) - Note Progress Note: NEUROSURGERY CONSULT DICTATED 3 weeks h/o L sided H/A and dizziness and 3 days h/o slurred speech and gait imbanace. H/o hypothyroidism, bipolar disorder. No N/V, diplopia, dysphagia, No photophobia or neck stiffness. No weakness, numbness, no parasthesias noted. No B/B dysfunction or LOC. PE: AF, VSS General- obese, unremarkable A/A/Ox4; speech fluent CN- intact II-XII; Motor- 5/5 without drift; Sensation- intact LT/vibration; DTR - 1+; toes downgoing; Cerebellar- intact FTN B; Gait- not tested Head CT- Mild L periventricular gliosis; no bleed; no fx Brain MRI- chronic L centrum-semiovale T2 hyperintensity c/w chronic ischemia Brain MRA- non-visualized L MCA at its origin; hypoplastic R VA; difficult to ascertain any collateral circulation R/o complete occlusion of L M1 at its origin On baby ASA When patient remains clinically improved and stable, should consider conventional arteriogram to r/o complete occlusion vs high grade stenosis of L M1 origin since there is evidence of prior ischemia of L MCA distribution and patient is young and otherwise healthy; if incomplete occlusion could consider endovascular tx, if complete occlusion could possibly consider EC-IC bypass, given h/o L MCA distribution ischemia on MRI - the above treatment options would need to be offered by a tertiary neurosurgical team with neuro- interventional input Option of medical tx alone discussed; consider Aggrenox over baby ASA alone per neurology team Pros and cons of treatment approaches discussed Advise weight reduction and control of medical risks factors (BP, glucose, cholesterol) Pt is apprehensive of any intervention, and opts for medications only All questions answered
--- NOTE | 2018-10-20 20:57 | CONS ---
DATE OF CONSULTATION: 10/20/2018 CHIEF COMPLAINT: Transient slurred speech and right-sided motor dysfunction. HISTORY OF PRESENT ILLNESS: The patient is a 48-year-old right-handed female with history of hypothyroidism, bipolar disorder, who complains of 3-day history of speech difficulty and gait disturbance. Prior to that, she also had a 3-week history of left-sided headache with associated dizziness. The patient denies any diplopia, nausea, vomiting, or other signs of increased intracranial pressure. She has no fever or chills. She has no weakness or numbness and has no bowel or bladder dysfunction. She did not have any seizure disorder, or any loss of consciousness. PAST MEDICAL HISTORY: Significant for hypothyroidism, bipolar disorder recently started on lithium. CURRENT MEDICATIONS: Includes Abilify, valium, Inderal, Lipitor, Ecotrin, baby aspirin, Synthroid, and liothyronine as well as Lovenox. ALLERGIES: PENICILLIN. SOCIAL HISTORY: She does not smoke or drink. She lives at home with her . 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 REVIEW OF SYSTEMS: Otherwise negative for major constitutional, head and neck, cardiovascular, pulmonary, gastrointestinal, genitourinary, endocrinologic, neurologic, or psychological problems except for as noted above. PHYSICAL EXAMINATION: Vital Signs: Temperature 98.3, blood pressure is 121/71, pulse rate 62, O2 saturation is 99% on room air. HEENT: Head is normocephalic, atraumatic. Anicteric. Neck: Supple. No lymphadenopathy. No carotid bruits. Coronary: Examination demonstrates a regular rhythm. Lungs: Clear bilaterally. Abdomen: Benign. Extremities: No signs of DVT. Neurologic: She is awake, alert and oriented x4. Speech is fluent. She fully follows commands. Cranial nerve examination is intact II-XII. Motor examination shows 5/5 strength bilaterally without drift. Sensory examination is intact to light touch and vibratory sensation. Deep tendon reflexes are 1+ throughout. There is no pathologic sign. Toes are downgoing. Gait is not tested for safety reasons. Cerebellar: She is demonstrating intact [id number] examination bilaterally. LABORATORY: Examination shows a sodium of 140 and potassium 4.1. BUN is 10 and creatinine 0.8. LFTs are normal. Triglycerides are 173 and total cholesterol is 188. LDL is 93. HDL is 68. INR is 1. White blood cell count is 6.1, hemoglobin 12.4, platelet count 248,000. CT scan of the head demonstrated no acute bleed or fracture. There is no mass effect. MRI of the brain demonstrated 2 spots of left-sided centrum semiovale T2 hyperintensity. There is no associated edema or mass affect. There is no mass lesion. MRA of the brain demonstrated complete occlusion of left M1 segment at its origin. There is also a hypoplasty of the right distal vertebral artery. Because this is an MRA, complete vascular occlusion cannot be diagnosed accurately. It is difficult to assess any collateral circulations of the left middle cerebral artery territory. IMPRESSION: 1. Rule out complete left M1 segment occlusion. 2. History of left middle cerebral artery distribution chronic ischemia. 3. Hypothyroidism/obesity. 4. Bipolar disorder. RECOMMENDATIONS: The patient presents with 3-week history of some headache and dizziness and 3-day history of slurred speech and ataxia. Her neurological condition has reverted to normal according to the patient. Presently, she has a nonfocal neurological examination. MRI of the brain demonstrated a hypointensity of the left centrum semiovale consistent with left MCA distribution. She also has MRA appearance of complete left M1 segment occlusion as well as relatively hypoplastic distal right vertebral artery. Fortunately, intracranial vascular occlusion cannot be concluded by the MRA examination. When the patient remains neurologically stable and returned to her neurological baseline and remains stable, conventional arteriography should be considered to delineate whether the left M1 segment is completely occluded. If it is only highly stenotic, endovascular treatment could be considered. Given that the patient is young and is otherwise relatively healthy and has prior MRI evidence of left MCA ischemia, it there is occlusion of the left M1 segment, some thought could be given to ECIC bypass to reestablish blood flow to the left middle cerebral artery territory. The above interventional and neurosurgical vascular procedure are both very high risk of course; however, given her relatively young age, we should at least offer these potential options. Such intervention would obviously require a tertiary institution with neurointerventional and neurovascular multi-disciplinary team and specialized imaging modalities such as Xeon CT scan to adequately evaluate and possibly treat the pathology. In the meantime, the patient should remain at least on a baby aspirin and hopefully be upgraded to Aggrenox to reduce her risk of stroke going forward. The patient obviously has the option of simply staying on antiplatelet agents or anticoagulation regimen per the medical neurology team as well. The pros and cons of treatment approach were discussed with the patient in detail at bedside. She is apprehensive of any invasive procedure, and wants to only be on medication. She does understand that further strokes could develop if there is progression of the left MCA distribution ischemia. All questions were answered at bedside. WILLIAM BAY M.D. CRISTO/[id number] MTDD
[2018-10-20] MEDS ORDERED: PT OWN MED DRAWER 7, Y5N ONE (21:47)
[2018-10-20] MEDS: ATORVASTATIN CA 80 MG TABLET (FP) PO SCH (21:52)
[2018-10-21] MEDS: LEVOTHYROXINE NA 88 MCG TABLET (FP) PO SCH (06:20)
[2018-10-21 07:20] LABS: BASO % 0.7 % (0-2.0); EOS % 2.4 % (0-4.5); HEMATOCRIT 39.7 % (32.4-45.2); HEMOGLOBIN 12.9 GM/dL (10.7-15.3); LYMPH % 24.4 % (8-40); MCH 29.4 pg (25.7-33.7); MCHC 32.5 g/dl (32.0-36.0); MEAN CELL VOLUME 90.5 fl (80-96); MEAN PLT VOLUME 7.8 fl (7.5-11.1); MONO % 6.6 % (3.8-10.2); NEUT % 65.9 % (42.8-82.8); PLATELET COUNT 250 K/MM3 (134-434); RBC 4.39 M/mm3 (3.60-5.2); RDW 13.5 % (11.6-15.6); WHITE BLOOD COUNT 6.6 K/mm3 (4.0-10.0)
[2018-10-21 08:50] LABS: ANION GAP 9 MMOL/L (8-16); BLOOD UREA NITROGEN 10 mg/dL (7-18); CALCIUM 8.7 mg/dL (8.5-10.1); CHLORIDE 108 mmol/L (98-107); CO2 23 mmol/L (21-32); CREATININE 0.9 mg/dL (0.55-1.3); GLUCOSE,RANDOM 99 mg/dL (74-106); MAGNESIUM 2.1 mg/dL (1.8-2.4); PHOSPHOROUS 3.5 mg/dL (2.5-4.9); POTASSIUM 3.9 mmol/L (3.5-5.1); SODIUM 140 mmol/L (136-145)
[2018-10-21] MEDS ORDERED: PT OWN MED DRAWER 7, Y5N ONE ×3 (09:47→21:27)
[2018-10-21] MEDS: ARIPiprazole 10 MG TABLET PO SCH (09:50)
[2018-10-21] MEDS: ENOXAPARIN NA (PORCINE) 40 MG/0.4 ML DISP.SYRIN SQ SCH (09:50)
[2018-10-21] MEDS: LIOTHYRONINE SODIUM 5 MCG TABLET PO SCH (09:51)
[2018-10-21] MEDS: ASPIRIN COATED 81 MG TABLET.EC PO SCH (09:51)
--- NOTE | 2018-10-21 12:21 | CONSULT ---
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 She has been c/o dizziness for past few days when standing from a sitting position. denies unintentional weightloss, night sweats, sun sensitivity, rashes, hematuria, edema, sob, chest pain, fevers, cough. Smoking hx: started age 13, quit 2018 Colonoscopy: april 2018 without any pathology, repeat in 5 years Pap smear: april 2018, no hx of abnormal pap smears mammogram: april 2018, no hx of abnormal mammograms denies personal or family history of bleeding or clotting disorders. mother at bedside, does not recall any family history of any hypercoaguable states. pt was on control from age 16 to 28. denies history of pregnancies/ abortions and known miscarriages. FMHx of malignancies: mother age 79, with hx of uterine ca and recent dx of lung ca, she also has smoking history paternal grandfather with leukemia sister, age 51 dx'd with breast cancer surgical hx - tonsilectomy as a child, seisomoid bone removal as a child, left hand surgery for trauma(caught hand on car door), uterine ablation and fibroid removal in April 2018 for menorrhagia - Past Medical History ...LMP: 04/17/18 ...: No (tested in er) - Alcohol/Substance Use Hx Alcohol Use: No - Smoking History Smoking history: Former smoker Have you smoked in the past 12 months: No Aproximately how many cigarettes per day: 10 If you are a former smoker, when did you quit?: 2017 Home Medications - Allergies Allergies/Adverse Reactions: Allergies Allergy/AdvReac Type Severity Reaction Status Date / Time Penicillins Allergy Verified 10/19/18 12:18 - Home Medications Home Medications: Ambulatory Orders Aripiprazole [Abilify -] 20 mg PO DAILY 05/27/13 Bupropion HCl [Wellbutrin Xl] 1 tab PO AM 05/27/13 Levothyroxine Sodium [Synthroid] 88 mcg PO DAILY 10/19/18 Bupropion HCl [Bupropion Xl] 300 mg PO AM 10/20/18 Liothyronine Sodium 1 tab PO DAILY 10/20/18 [place] Carbonate [Eskalith -] 3 cap PO HS 10/20/18 Propranolol HCl 1 tab PO BID 10/20/18 Clonazepam [Klonopin] 1 mg PO DAILY PRN 10/21/18 Trazodone HCl 1.5 tab PO HS PRN 10/21/18 Family Disease History - Family Disease History Family Disease History: CA: Grandparent (paternal grandfather leukemia), Mother (uterine, lung ca), Sister (breast) Review of Systems - Review of Systems Constitutional: denies: Fever, Lethargy, Loss of Appetite, Night Sweats, Unintentional Wgt. Loss HENT: denies: Difficult Swallowing, Throat Pain Neck: reports: No Symptoms Respiratory: denies: Cough, Orthopnea Gastrointestinal: denies: Abdominal Pain, Nausea, Vomiting Breasts: reports: No Symptoms Reported Musculoskeletal: reports: No Symptoms Integumentary: reports: No Symptoms Neurological: reports: Change in Speech, Dizziness. denies: Tremors Hematology/Lymphatic: reports: No Symptoms Physical Exam Vital Signs: Vital Signs Temperature 97.8 F 10/21/18 06:00 Pulse Rate 66 10/21/18 06:00 Respiratory Rate 18 10/21/18 09:56 Blood Pressure 99/56 L 10/21/18 06:00 O2 Sat by Pulse Oximetry (%) 97 10/21/18 09:56 Constitutional: Yes: No Distress Eyes: Yes: Conjunctiva Clear, EOM Intact, PERRL HENT: Yes: Atraumatic, Normocephalic Neck: Yes: Supple, Trachea Midline. No: Lymphadenopathy Cardiovascular: Yes: Regular Rate and Rhythm. No: Murmur Respiratory: Yes: Regular, CTA Bilaterally Gastrointestinal: Yes: Normal Bowel Sounds, Soft, Abdomen, Obese Edema: No Peripheral Pulses WNL: Yes Neurological: Yes: Alert, Oriented, Cran Nerves II-XII Intact. No: Dysarthria, Tremors Labs: CBC, BMP 10/21/18 06:30 10/21/18 06:30 Assessment/Plan 48 yr old woman with bipolar disorder and hypothyroidism found to have L MCA occlusion Problem List: Bipolar disorder hypothyroidism L MCA occlusion A/P - unclear etiology of L MCA findings on MRI. pt is upto date on age appropriate cancer screenings, recent colonoscopy/mammo/pap smear hypercoagable work-up would include: LINDA screen, Anticardiolipin antibody, lupus anticoagulant, [id number] I antibody, factor V leiden, JAK2 mutation, MTHFr w/ homocysteine, prothrombin gene, protein S/C, anti-thrombin III. - Lupus anticoagulant will need to be repeated at least 12 weeks apart and detected - Protein S/C and anti-thrombin III would need to be completed when pt is off lovenox as outpatient to obtain accurate results - will order chest/abdomen/pelvis CT scan to r/o any underlying signs of malignancy - recommend outpatient referral for genetic counseling given family hx of malignancies, contact information for [facility] genetics couseling service added to discharge instructions
--- NOTE | 2018-10-21 13:40 | PN ---
Progress Note (short form) - Note Progress Note: 48 year old female hsitory of bipolar disorder, she is on abilify, wellbutrin, trazadone, synthroid , lithium. Patient was started on [place] recenlty. She denies any headahce, weakness , LOC, seizure like activity, or numbness. Lately she does complainin of memory difficulty and she has been forgetting things. ct scan of brain is normal. [facility] speech and mri of brain is normal. SHe is found to have left mca total occlusion. She do not have any vascular risk factor. She has no history of stroke or weakness . = Alert oriented x 3, no neck stiffness speech is better.eomi, pupils reactive, no face asymmetry motor 5/5 all ext sensation is normal ct head is normal, carotid ultrasound is normal mri of brain no acute stroke, there is mild white matter disease MRA of rbain left mca total occlusion. Assessment/Plan 48 year old female history of bipolar on five different medication, [place] was recently started. Neuro exam is normal, except slruring of speech. ct head and carotid ultrasound is normalis normal. slurring of speech is normal 2. Asymptomatic left mca occlusion Plan:mra of brain reviewed with radiologist and there is occlsuion [place] to do vasculitis work up and hypercoagubility work up ( hem consult can be obtained) - she may need pneumatic tube fitter consult , for possible DIOMEDES - There is no need for any procedure as she is asymptomatic and this is complete occlusion -continue aspirin and statin - would consider consulation of vascular neurosurgery outpatient, case discussed with resident Thnaking you so much Jj Galaviz MD
--- NOTE | 2018-10-21 15:00 | PN ---
Physical Exam: SUBJECTIVE: Patient seen and examined at bedside this morning. No acute events overnight. Patient still reports having slurred speech, but otherwise denies headache, dizziness, fever, chills. OBJECTIVE: Vital Signs Period Temp Pulse Resp BP Sys/[place] Pulse Ox Last 24 Hr 97.7 F-98.6 F 66-73 18-18 99-119/56-73 94-97 GENERAL: The patient is awake, alert, and fully oriented, in no acute distress. EYES: PERRLA, EOMI, sclera anicteric, conjunctiva clear. NECK: Soft, supple, trachea midline without LAD LUNGS: Breath sounds equal, clear to auscultation bilaterally. HEART: Regular rate and rhythm, S1, S2 without murmur, rub or gallop. ABDOMEN: Soft, nontender, nondistended, normoactive bowel sounds. EXTREMITIES: 2+ pulses, warm, well-perfused, no edema. NEUROLOGICAL: AAOx3, asymmetric smile, Cranial nerves II through XII grossly intact. Motor strength 5/5 on all extremities, sensation intact. PSYCH: Normal mood, normal affect. SKIN: Warm, dry, normal turgor, no rashes or lesions noted Laboratory Results - last 24 hr 10/20/18 10/21/18 10/21/18 09:42 06:30 06:30 WBC 6.6 RBC 4.39 Hgb 12.9 Hct 39.7 MCV 90.5 MCH 29.4 MCHC 32.5 RDW 13.5 Plt Count 250 MPV 7.8 Absolute Neuts (auto) 4.3 Neutrophils % 65.9 Lymphocytes % 24.4 Monocytes % 6.6 Eosinophils % 2.4 Basophils % 0.7 Nucleated RBC % 0 ESR Sodium 140 Potassium 3.9 Chloride 108 H Carbon Dioxide 23 Anion Gap 9 BUN 10 Creatinine 0.9 Creat Clearance w eGFR > 60 Random Glucose 99 Calcium 8.7 Phosphorus 3.5 Magnesium 2.1 C-Reactive Protein [place] 0.3 L Rheumatoid Factor 10/21/18 10/21/18 13:55 13:55 WBC RBC Hgb Hct MCV MCH MCHC RDW Plt Count MPV Absolute Neuts (auto) Neutrophils % Lymphocytes % Monocytes % Eosinophils % Basophils % Nucleated RBC % ESR 13 Sodium Potassium Chloride Carbon Dioxide Anion Gap BUN Creatinine Creat Clearance w eGFR Random Glucose Calcium Phosphorus Magnesium C-Reactive Protein < 0.3 [place] Rheumatoid Factor < 10.0 Active Medications Generic Name Dose Route Start Last Admin Trade Name Ce PRN Reason Stop Dose Admin Aripiprazole 20 mg 10/21/18 10:00 10/21/18 09:50 Abilify PO 20 mg DAILY MAY Administration Aspirin 81 mg 10/20/18 10:00 10/21/18 09:51 Ecotrin - PO 81 mg DAILY MAY Administration Atorvastatin Calcium 80 mg 10/19/18 22:00 10/20/18 21:52 Lipitor - PO 80 mg HS MAY Administration Bupropion HCl 300 mg 10/21/18 10:00 10/21/18 09:51 Wellbutrin Xl - PO 300 mg DAILY MAY Administration Enoxaparin Sodium 40 mg 10/19/18 20:30 10/21/18 09:50 Lovenox - SQ 40 mg DAILY MAY Administration Levothyroxine Sodium 88 mcg 10/21/18 07:00 10/21/18 06:20 Synthroid - PO 88 mcg DAILY@0700 MAY Administration Liothyronine Sodium 5 mcg 10/21/18 10:00 10/21/18 09:51 Cytomel - PO 5 mcg DAILY MAY Administration Propranolol HCl 20 mg 10/20/18 22:00 10/21/18 09:50 Inderal - PO 20 mg BID MAY Administration -CT head: No gross acute intracranial pathology -Carotid doppler: No evidence of a high-grade carotid artery stenosis -Echo:LV size, thickness, and function are normal. RV is normal in size and function. Mild MR, trace TR. -Brain MRI without contrast: There are couple of T2 hyperintense foci in the elft periventricular white matter which are nonspecific and may be on the basis of minimal periventricular chronic microvascular ischemic disease changes. No acute intracranial pathology. -Brain MRA without contrast: Occlusion of the left middle cerebral artery from its origin. 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 ASSESSMENT/PLAN: Patient is a 48 year old female with past medical history of hypothyroidism, bipolar disorder, presented with slurred speech and abnormal gait for 2 days. #Slurred speech and abnormal gait: improving -Brain MRI without contrast: There are couple of T2 hyperintense foci in the elft periventricular white matter which are nonspecific and may be on the basis of minimal periventricular chronic microvascular ischemic disease changes. No acute intracranial pathology. -Brain MRA without contrast: Occlusion of the left middle cerebral artery from its origin. 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 -Neurology (Dr. Galaviz) consulted. Recommendations appreciated. -Vasculitis work-up and Hypercoagulability work-up -Rheumatology and Hematology consulted. -ESR/CRP, LINDA, dsDNA, RF, anti-Ro/-La, anca ordered -No need for any procedure as she is asymptomatic -Would consider vascular neurosurgery as outpatient. -Neurosurgery (Dr. Schmidt) consulted. Recommendations appreciated. -When patient remains clinically improved and stable, should consider conventional arteriogram to r/o complete occlusion vs high grade stenosis of L M1 origin since there is evidence of prior ischemia of L MCA distribution and patient is young and otherwise healthy; if incomplete occlusion could consider endovascular tx, if complete occlusion could possibly consider EC-IC bypass, given h/o L MCA distribution ischemia on MRI - the above treatment options would need to be offered by a tertiary neurosurgical team with neuro- interventional input -Speech and swallow evaluation appreciated. -Continue ASA, Statins -Physical therapy #Bipolar disorder -[place] level 0.3 -Will trend lithium level -Continue home Abilify 20mg, Bupropion 300mg daily #Hypothyroidism -Continue home Synthroid 88mcg daily #FEN -Not on any standing fluids -Electrolytes wnl, routine bmp monitoring -Sodium controlled diet #Disposition -full code -stroke tele Visit type - Emergency Visit Emergency Visit: Yes ED Registration Date: 10/20/18 Care time: The patient presented to the Emergency Department on the above date and was hospitalized for further evaluation of their emergent condition. - New Patient This patient is new to me today: No - Critical Care Critical Care patient: No
[2018-10-21] MEDS ORDERED: clonazePAM 0.5 MG TABLET PO PRN (15:13)
[2018-10-21] MEDS ORDERED: TRAZODONE PO PRN ×2 (15:23→22:00)
--- NOTE | 2018-10-21 18:11 | CONSULT ---
Consult - text type - Consultation Consultation Note: NEUROSURGERY CONSULTATION Teresa Diggs is a 48 year old female with a recent history of slurred speech who was admitted to [facility] from the ER for further evaluation and management. The patient has returned to her baseline level of Neurological functioning, however, MRA suggests Left MCA occlusion versus high grade stenosis. While complete occlusion which may be longstanding does not necessarily warrant urgent intervention, MRA poorly distinguishes between high grade stenosis and occlusion and the patient may be at risk for further ischemic events or possibly devastating CVA. I agree that management of this condition would best be conducted in the context of a full Cerebrovascular team (Cerebrovascular surgeon, Endovascular capable physician, Stroke Neurologist and Neuro ICU). Given the potential for repeat events, I would not advocate delay and would suggest expedited transfer to the care of such a team. Dr. Noland at [facility] leads such a team and would be a logical choice. At the patient's request, I will reach out to him for an opinion. All questions were answered.
--- NOTE | 2018-10-21 19:17 | PN ---
Teaching Attending Note Name of Resident: Millie Portillo ATTENDING PHYSICIAN STATEMENT I saw and evaluated the patient. I reviewed the resident's note and discussed the case with the resident. I agree with the resident's findings and plan as documented. SUBJECTIVE: Patient's symptoms improved. Feeling better with no acute distress. OBJECTIVE: Vital Signs Temperature 98.7 F 10/21/18 18:00 Pulse Rate 76 10/21/18 18:00 Respiratory Rate 18 10/21/18 18:00 Blood Pressure 121/68 10/21/18 18:00 O2 Sat by Pulse Oximetry (%) 97 10/21/18 18:00 GENERAL: Obese female, Awake, alert, and fully oriented, in no acute distress. HEAD: Normal with no signs of trauma. EYES: Pupils equal, round and reactive to light, extraocular movements intact, sclera anicteric, conjunctiva clear. EARS, NOSE, THROAT: Ears normal, oropharynx clear without exudates. Moist mucous membranes. NECK: Normal range of motion, supple, no JVD LUNGS: Breath sounds equal, clear to auscultation bilaterally. No wheezes, and no crackles. HEART: Regular rate and rhythm, normal S1 and S2 without murmur ABDOMEN: Obese, Soft, nontender, not distended, normoactive bowel sounds EXTREMITIES: 2+ pulses, warm, well-perfused. No calf tenderness. No peripheral edema. NEUROLOGICAL: Cn 2-12 grossly intact. reduced touch sensation LUE, reduced strength 4/5 LUE. Cranial nerves II-XII intact. normal speech. gait not observed . PSYCHIATRIC: Cooperative. Good eye contact. Appropriate mood and affect. CBCD WBC 6.6 K/mm3 (4.0-10.0) 10/21/18 06:30 RBC 4.39 M/mm3 (3.60-5.2) 10/21/18 06:30 Hgb 12.9 GM/dL (10.7-15.3) 10/21/18 06:30 Hct 39.7 % (32.4-45.2) 10/21/18 06:30 MCV 90.5 fl (80-96) 10/21/18 06:30 MCHC 32.5 g/dl (32.0-36.0) 10/21/18 06:30 RDW 13.5 % (11.6-15.6) 10/21/18 06:30 Plt Count 250 K/MM3 (134-434) 10/21/18 06:30 MPV 7.8 fl (7.5-11.1) 10/21/18 06:30 CMP Sodium 140 mmol/L (136-145) 10/21/18 06:30 Potassium 3.9 mmol/L (3.5-5.1) 10/21/18 06:30 Chloride 108 mmol/L (98-107) H 10/21/18 06:30 Carbon Dioxide 23 mmol/L (21-32) 10/21/18 06:30 Anion Gap 9 MMOL/L (8-16) 10/21/18 06:30 BUN 10 mg/dL (7-18) 10/21/18 06:30 Creatinine 0.9 mg/dL (0.55-1.3) 10/21/18 06:30 Creat Clearance w eGFR > 60 (>60) 10/21/18 06:30 Random Glucose 99 mg/dL (74-106) 10/21/18 06:30 Calcium 8.7 mg/dL (8.5-10.1) 10/21/18 06:30 Total Bilirubin 0.5 mg/dL (0.2-1) 10/20/18 06:30 AST 30 U/L (15-37) 10/20/18 06:30 ALT 27 U/L (13-61) 10/20/18 06:30 Alkaline Phosphatase 49 U/L (45-117) 10/20/18 06:30 Total Protein 6.0 g/dl (6.4-8.2) L 10/20/18 06:30 Albumin 3.1 g/dl (3.4-5.0) L 10/20/18 06:30 Current Medications Generic Name Dose Route Start Last Admin Trade Name Freq PRN Reason Stop Dose Admin Aripiprazole 20 mg 10/21/18 10:00 10/21/18 09:50 Abilify PO 20 mg DAILY MAY Administration Aspirin 81 mg 10/20/18 10:00 10/21/18 09:51 Ecotrin - PO 81 mg DAILY MAY Administration Atorvastatin Calcium 80 mg 10/19/18 22:00 10/20/18 21:52 Lipitor - PO 80 mg HS MAY Administration Bupropion HCl 300 mg 10/21/18 10:00 10/21/18 09:51 Wellbutrin Xl - PO 300 mg DAILY MAY Administration Clonazepam 1 mg 10/21/18 15:13 Klonopin - PO DAILY PRN ANXIETY Enoxaparin Sodium 40 mg 10/19/18 20:30 10/21/18 09:50 Lovenox - SQ 40 mg DAILY MAY Administration Levothyroxine Sodium 88 mcg 10/21/18 07:00 10/21/18 06:20 Synthroid - PO 88 mcg DAILY@0700 MAY Administration Liothyronine Sodium 5 mcg 10/21/18 10:00 10/21/18 09:51 Cytomel - PO 5 mcg DAILY MAY Administration Propranolol HCl 20 mg 10/20/18 22:00 10/21/18 09:50 Inderal - PO 20 mg BID MAY Administration Trazodone HCl 200 mg/ 225 mg 10/21/18 22:00 Trazodone HCl 25 mg PO HS PRN INSOMNIA Home Medications Medication Instructions Recorded Aripiprazole [Abilify -] 20 mg PO DAILY 05/27/13 Bupropion HCl [Wellbutrin Xl] 1 tab PO AM 05/27/13 Levothyroxine Sodium [Synthroid] 88 mcg PO DAILY 10/19/18 Bupropion HCl [Bupropion Xl] 300 mg PO AM 10/20/18 Liothyronine Sodium 1 tab PO DAILY 10/20/18 [place] Carbonate [Eskalith -] 3 cap PO HS 10/20/18 Propranolol HCl 1 tab PO BID 10/20/18 Clonazepam [Klonopin] 1 mg PO DAILY PRN 10/21/18 Trazodone HCl 1.5 tab PO HS PRN 10/21/18 [id number] CT head- negative. MRI/MRA: Occlusion of left middle cerebral artery ASSESSMENT AND PLAN: Pt is a 48yo Female , with PMHx of hypothyroidism, bipolar disorder (recently started on lithium), presenting with slurred speech and abnormal gait x 2 days. # Acute left middle Cerebellar artery occlusion, Dr. Galaviz neuro consult appreciated, Patient requested Dr. Reddy's openion , dr.Tom murphy sen the patient and suggested to follow with a tertiary center . continue aspirin and lipitor #bipolar disorder on [place] level is 0.3 #Hypothyroidism TSH-1.78, free T3-34, Resume synthroid for now. #Obesity,BMI 40.4, Weight loss counselling DVT: Lovenox 40sq
--- NOTE | 2018-10-21 20:12 | PN ---
Teaching Attending Note Name of Resident: Kristofer Gómez ATTENDING PHYSICIAN STATEMENT I saw and evaluated the patient. I reviewed the resident's note and discussed the case with the resident. I agree with the resident's findings and plan as documented. SUBJECTIVE: Patient seen and examined Prior notes reviewed [facility]. note reviewed with thoughts of transfer to tertiary [facility]. Have discussed this with patient . Last Vital Signs Temp Pulse Resp BP Pulse Ox 98.7 F 76 18 121/68 97 10/21/18 18:00 10/21/18 18:00 10/21/18 18:00 10/21/18 18:00 10/21/18 18:00 HEENT: JAMES, EOM Intact Oropharynx: No thrush, No mucositis Neck: Supple Nodes: Without adenopathy Breasts: Without masses Cor: RSR, No murmurs, No gallops Lungs: Clear to P&A Abd: Soft, Normal bowel sounds, No organomegaly Ext:No significant edema Skin: No rashes, Integument intact Current Medications Generic Name Dose Route Start Last Admin Trade Name Freq PRN Reason Stop Dose Admin Aripiprazole 20 mg 10/21/18 10:00 10/21/18 09:50 Abilify PO 20 mg DAILY MAY Administration Aspirin 81 mg 10/20/18 10:00 10/21/18 09:51 Ecotrin - PO 81 mg DAILY MAY Administration Atorvastatin Calcium 80 mg 10/19/18 22:00 10/20/18 21:52 Lipitor - PO 80 mg HS MAY Administration Bupropion HCl 300 mg 10/21/18 10:00 10/21/18 09:51 Wellbutrin Xl - PO 300 mg DAILY MAY Administration Clonazepam 1 mg 10/21/18 15:13 Klonopin - PO DAILY PRN ANXIETY Enoxaparin Sodium 40 mg 10/19/18 20:30 10/21/18 09:50 Lovenox - SQ 40 mg DAILY MAY Administration Levothyroxine Sodium 88 mcg 10/21/18 07:00 10/21/18 06:20 Synthroid - PO 88 mcg DAILY@0700 MAY Administration Liothyronine Sodium 5 mcg 10/21/18 10:00 10/21/18 09:51 Cytomel - PO 5 mcg DAILY MAY Administration Propranolol HCl 20 mg 10/20/18 22:00 10/21/18 09:50 Inderal - PO 20 mg BID MAY Administration Trazodone HCl 200 mg/ 225 mg 10/21/18 22:00 Trazodone HCl 25 mg PO HS PRN INSOMNIA OBJECTIVE:Impression : MCA occlusion vs stenosis Tertiary care transfer. Defer on hypercoaguable work up in view of anticipated transfer. Of note -mother with endometrial ca, sister with breast ca - patient states she has had negative genetic testing in past. ASSESSMENT AND PLAN:
--- NOTE | 2018-10-21 20:15 | PN ---
Teaching Attending Note ATTENDING PHYSICIAN STATEMENT I saw and evaluated the patient. I reviewed the resident's note and discussed the case with the resident. I agree with the resident's findings and plan as documented. SUBJECTIVE: OBJECTIVE: ASSESSMENT AND PLAN:
[2018-10-21] MEDS: ATORVASTATIN CA 80 MG TABLET (FP) PO SCH (21:32)
[2018-10-21] MEDS ORDERED: traZODone HCL 50 MG TABLET (FP) PO PRN (22:00)
[2018-10-22 06:42] LABS: HEMATOCRIT 38.5 % (32.4-45.2); HEMOGLOBIN 13.6 GM/dL (10.7-15.3); MCH 31.5 pg (25.7-33.7); MCHC 35.2 g/dl (32.0-36.0); MEAN CELL VOLUME 89.5 fl (80-96); MEAN PLT VOLUME 8.1 fl (7.5-11.1); PLATELET COUNT 255 K/MM3 (134-434); RDW 13.4 % (11.6-15.6); WHITE BLOOD COUNT 6.2 K/mm3 (4.0-10.0)
[2018-10-22] MEDS: LEVOTHYROXINE NA 88 MCG TABLET (FP) PO SCH (06:52)
[2018-10-22 07:21] LABS: ANION GAP 10 MMOL/L (8-16); BLOOD UREA NITROGEN 10 mg/dL (7-18); CALCIUM 8.5 mg/dL (8.5-10.1); CHLORIDE 107 mmol/L (98-107); CO2 23 mmol/L (21-32); CREATININE 0.9 mg/dL (0.55-1.3); GLUCOSE,RANDOM 146 mg/dL (74-106); POTASSIUM 3.3 mmol/L (3.5-5.1); SODIUM 139 mmol/L (136-145)
[2018-10-22] MEDS ORDERED: PT OWN MED DRAWER 7, Y5N ONE (10:09)
[2018-10-22] MEDS: ENOXAPARIN NA (PORCINE) 40 MG/0.4 ML DISP.SYRIN SQ SCH (10:11)
[2018-10-22] MEDS: ARIPiprazole 10 MG TABLET PO SCH (10:11)
[2018-10-22] MEDS: LIOTHYRONINE SODIUM 5 MCG TABLET PO SCH (10:12)
[2018-10-22] MEDS: ASPIRIN COATED 81 MG TABLET.EC PO SCH (10:12)
[2018-10-22 10:21] VITALS: BP 123/66; PULSE 73; TEMP 97.9
--- NOTE | 2018-10-22 11:20 | DS ---
Physical Exam: SUBJECTIVE: Patient seen and examined Symptoms improved with no acute distress, no headache, no shortness of breath. OBJECTIVE: Vital Signs Temperature 97.9 F 10/22/18 10:21 Pulse Rate 73 10/22/18 10:21 Respiratory Rate 20 10/22/18 10:21 Blood Pressure 123/66 10/22/18 10:21 O2 Sat by Pulse Oximetry (%) 93 L 10/22/18 10:23 Initial Vital Signs Temp Pulse Resp BP Pulse Ox 98.3 F 69 16 118/75 97 10/19/18 12:18 10/19/18 12:18 10/19/18 12:18 10/19/18 12:18 10/19/18 12:18 PHYSICAL EXAM GENERAL: The patient is awake, alert, and fully oriented, in no acute distress. HEAD: Normal with no signs of trauma. EYES: PERRL, extraocular movements intact, sclera anicteric, conjunctiva clear. ENT: Ears normal, oropharynx clear without exudates, moist mucous membranes. NECK: Trachea midline, full range of motion, supple. LUNGS: Breath sounds equal, clear to auscultation bilaterally, no wheezes, no crackles, no accessory muscle use. HEART: Regular rate and rhythm, S1, S2 without murmur, rub or gallop. ABDOMEN: Soft, nontender, nondistended, normoactive bowel sounds, no guarding, no rebound, no hepatosplenomegaly, no masses. EXTREMITIES: 2+ pulses, warm, well-perfused, no edema. NEUROLOGICAL: Cranial nerves II through XII grossly intact. Normal speech, gait is stable PSYCH: Normal mood, normal affect. SKIN: Warm, dry, normal turgor, no rashes or lesions noted. LABS Laboratory Results - last 24 hr 10/21/18 10/21/18 10/22/18 13:55 13:55 05:50 WBC 6.2 RBC 4.30 Hgb 13.6 Hct 38.5 MCV 89.5 MCH 31.5 MCHC 35.2 RDW 13.4 Plt Count 255 MPV 8.1 ESR 13 Sodium Potassium Chloride Carbon Dioxide Anion Gap BUN Creatinine Creat Clearance w eGFR Random Glucose Calcium C-Reactive Protein < 0.3 Rheumatoid Factor < 10.0 10/22/18 05:50 WBC RBC Hgb Hct MCV MCH MCHC RDW Plt Count MPV ESR Sodium 139 Potassium 3.3 L Chloride 107 Carbon Dioxide 23 Anion Gap 10 BUN 10 Creatinine 0.9 Creat Clearance w eGFR > 60 Random Glucose 146 H Calcium 8.5 C-Reactive Protein Rheumatoid Factor Current Medications Generic Name Dose Route Start Last Admin Trade Name Freq PRN Reason Stop Dose Admin Aripiprazole 20 mg 10/21/18 10:00 10/22/18 10:11 Abilify PO 20 mg DAILY MAY Administration Aspirin 81 mg 10/20/18 10:00 10/22/18 10:12 Ecotrin - PO 81 mg DAILY MAY Administration Atorvastatin Calcium 80 mg 10/19/18 22:00 10/21/18 21:32 Lipitor - PO 80 mg HS MAY Administration Bupropion HCl 300 mg 10/21/18 10:00 10/22/18 12:15 Wellbutrin Xl - PO Not Given DAILY MAY Clonazepam 1 mg 10/21/18 15:13 Klonopin - PO DAILY PRN ANXIETY Enoxaparin Sodium 40 mg 10/19/18 20:30 10/22/18 10:11 Lovenox - SQ 40 mg DAILY MAY Administration Levothyroxine Sodium 88 mcg 10/21/18 07:00 10/22/18 06:52 Synthroid - PO 88 mcg DAILY@0700 MAY Administration Liothyronine Sodium 5 mcg 10/21/18 10:00 10/22/18 10:12 Cytomel - PO 5 mcg DAILY MAY Administration Propranolol HCl 20 mg 10/22/18 11:00 10/22/18 12:16 Inderal - PO Not Given BID MAY Trazodone HCl 200 mg/ 225 mg 10/21/18 22:00 10/21/18 21:32 Trazodone HCl 25 mg PO 225 mg HS PRN Administration INSOMNIA Home Medications Medication Instructions Recorded Aripiprazole [Abilify -] 20 mg PO DAILY 05/27/13 Bupropion HCl [Wellbutrin Xl] 1 tab PO AM 05/27/13 Levothyroxine Sodium [Synthroid] 88 mcg PO DAILY 10/19/18 Bupropion HCl [Bupropion Xl] 300 mg PO AM 10/20/18 Liothyronine Sodium 1 tab PO DAILY 10/20/18 Keenes Carbonate [Eskalith -] 3 cap PO HS 10/20/18 Propranolol HCl 1 tab PO BID 10/20/18 Clonazepam [Klonopin] 1 mg PO DAILY PRN 10/21/18 Trazodone HCl 1.5 tab PO HS PRN 10/21/18 HOSPITAL COURSE: Date of Admission:10/20/18 Date of Discharge: 10/22/18 [id number] CT head- negative. MRI/MRA: Occlusion of left middle cerebral artery ASSESSMENT AND PLAN: Pt is a 48yo Female , with PMHx of hypothyroidism, bipolar disorder (recently started on lithium), presenting with slurred speech and abnormal gait x 2 days. # Acute left middle Cerebellar artery occlusion, Dr. Galaviz neuro consult appreciated, as per Dr. Reddy's recommendation to follow up with Dr. Noland who suggests that patient should be discharged on ASA 325mg PO QD consult, patient should follow up with Dr. Montoya at [facility]. all the information given to the patient. Also as per patient's request discussed with her Psychiatrist and will follow with him as well as an outpatient. continue aspirin and lipitor #bipolar disorder on Keenes level is 0.3 , follow with the psychiatrist as an outpatient. #Hypothyroidism TSH-1.78, free T3-34, Resume synthroid for now. #Obesity,BMI 40.4, Weight loss counselling discharge patient home. Minutes to complete discharge: 40 Discharge Summary Reason For Visit: SLURRED SPEECH Current Active Problems Slurred speech (Acute) Condition: Stable - Instructions Diet, Activity, Other Instructions: Genetic counseling: [facility] ([facility] location) [address] [place] [id number] [facility] ([facility] location) [address] [place] [id number] colton noland at [facility]. [phone] follow with your psychiatrist Dr.Mark Powers within a week period. Follow with hematology/oncology for further work up. Referrals: Jj Galaviz MD [Staff Physician] - 1 Week Jani Renteria MD, FA[facility] [Staff Physician] - Murray Schmidt MD [Staff Physician] - 2 Weeks Vinayak Olsen MD [Staff Physician] - Disposition: VNS/HOME HEALTH CARE - Home Medications Comprehensive Discharge Medication List: Ambulatory Orders Aripiprazole [Abilify -] 20 mg PO DAILY 05/27/13 Bupropion HCl [Wellbutrin Xl] 1 tab PO AM 05/27/13 Levothyroxine Sodium [Synthroid] 88 mcg PO DAILY 10/19/18 Bupropion HCl [Bupropion Xl] 300 mg PO AM 10/20/18 Liothyronine Sodium 1 tab PO DAILY 10/20/18 Keenes Carbonate [Eskalith -] 3 cap PO HS 10/20/18 Propranolol HCl 1 tab PO BID 10/20/18 Clonazepam [Klonopin] 1 mg PO DAILY PRN 10/21/18 Trazodone HCl 1.5 tab PO HS PRN 10/21/18 This patient is new to me today: No Emergency Visit: Yes ED Registration Date: 10/20/18 Care time: The patient presented to the Emergency Department on the above date and was hospitalized for further evaluation of their emergent condition. Critical Care patient: No - Discharge Referral Referred to [facility] Med P.C.: No
--- NOTE | 2018-10-22 12:20 | PN ---
Progress Note (short form) - Note Progress Note: Case and imaging reviewed with Dr. Noland who suggests that patient can be discharged with ASA 325mg PO QD and he will see her early next week. Contact information given to patient and spouse and case discussed in detail. Dr. Noland's office notified to expect call Wednesday.
[2018-10-25 18:17] LABS: ATYPICAL pANCA <1:20 titer (Neg:<1:20); C-ANCA <1:20 titer (Neg:<1:20); P-ANCA <1:20 titer (Neg:<1:20)
== END 2018-10-22 13:33 | disposition home health service (06) | DRG 68 ==
LOC: JER 12:11 → JERBED 15:53 → J4S 21:29 → OBSVTOIN 10-20 16:33
PROVIDERS: ADMIT Internal Medicine; ATTEND Internal Medicine
DX: I66.02 Occlusion and stenosis of left middle cerebral artery (principal); Z68.41 Body mass index [BMI] 40.0-44.9, adult; E03.9 Hypothyroidism, unspecified; F31.9 Bipolar disorder, unspecified; E66.8 Other obesity; R29.703 NIHSS score 3; Z87.891 Personal history of nicotine dependence; Z88.0 Allergy status to penicillin
CPT/HCPCS: 36415; 70450-TC; 70544-TC; 70551-TC; 71045-TC-FY; 71250-TC; 74176-TC; 80048; 80053; 80061; 80178; 80307; 81003; 81015; 83036; 83520; 83721; 83735; 84100; 84436; 84443; 84479; 84703; 85025; 85027; 85610; 85651; 86038; 86140; 86225; 86235; 86256; 86431; 90688; 93005; 93010; 93306-TC; 93880-TC; 97116-GP; 97161-GP; 99283-25; G0008; G0378

== ENCOUNTER 2021-01-08 05:31 | Day surgery (SDC) | payer OTHER ==
[2021-01-07 17:42] VITALS: BMI 27.4
[~2021-01-08 05:31] MED LIST: IOHEXOL 180 MG/1 ML ML IJ ONE
[2021-01-08] MEDS ORDERED: MIDAZOLAM HCL 2 MG/2 ML SINGLE DOSE VIAL ONE (08:09)
[2021-01-08] MEDS ORDERED: SUCCINYLCHOLINE CHLORIDE 200 MG/10 ML SYRINGE ONE (08:11)
[2021-01-08] MEDS ORDERED: BUPIVACAINE HCL/PF 0.5% (5 MG/ML) 30 ML VIAL IJ ONE ×2 (08:26→08:37)
[2021-01-08] MEDS ORDERED: IOHEXOL 180 MG/1 ML ML IJ ONE (08:27)
[2021-01-08 08:59] VITALS: PULSE 65
[2021-01-08 09:40] VITALS: BP 119/72; TEMP 96.8
== END 2021-01-08 09:45 | disposition home or self-care (01) ==
LOC: JASU-SURG 05:31
PROVIDERS: ATTEND Pain Medicine Pain Medicine
PROC: BR14YZZ Fluoroscopy of Cervical Facet Joint(s) using Other Contrast (ICD-10-PCS; 2021-01-08)
PROC: 3E0T3BZ Introduction of Anesthetic Agent into Peripheral Nerves and Plexi, Percutaneous Approach (ICD-10-PCS; principal; 2021-01-08 08:00)
DX: M47.812 Spondylosis without myelopathy or radiculopathy, cervical region (principal)
CPT/HCPCS: 76000-TC-FY

== ENCOUNTER 2021-01-24 04:35 | Day surgery (SDC) | payer OTHER ==
[2021-01-21 14:08] VITALS: BMI 27.4
[2021-01-24] MEDS ORDERED: MIDAZOLAM HCL 2 MG/2 ML SINGLE DOSE VIAL ONE ×5 (13:24→13:37)
[2021-01-24] MEDS ORDERED: PROPOFOL 20 ML ONE ×2 (13:33)
[2021-01-24] MEDS ORDERED: IOHEXOL 180 MG/1 ML ML IJ ONE (13:36)
[2021-01-24] MEDS ORDERED: BUPIVACAINE HCL/PF 0.5% (5MG/ML) 10 ML VIAL IJ ONE ×2 (13:38→13:45)
[2021-01-24 14:19] VITALS: BP 96/63; PULSE 63; TEMP 98.4
== END 2021-01-24 14:30 | disposition home or self-care (01) ==
LOC: JASU-SURG 04:35
PROVIDERS: ATTEND Pain Medicine Pain Medicine
PROC: 3E0T3BZ Introduction of Anesthetic Agent into Peripheral Nerves and Plexi, Percutaneous Approach (ICD-10-PCS; principal; 2021-01-24 12:30)
DX: M47.812 Spondylosis without myelopathy or radiculopathy, cervical region (principal)
CPT/HCPCS: 76000-TC-FY

== ENCOUNTER 2021-05-09 04:17 | Day surgery (SDC) | payer OTHER ==
[2021-05-07 16:10] VITALS: BMI 27.4
[2021-05-09] MEDS ORDERED: BUPIVACAINE HCL/PF 0.5% (5MG/ML) 10 ML VIAL ONE (07:15)
[2021-05-09] MEDS ORDERED: LIDOCAINE HCL/PF 1% SDV 5ML VIAL ONE (07:15)
[2021-05-09 12:38] VITALS: BP 106/74; PULSE 68; TEMP 97.4
== END 2021-05-09 11:40 | disposition home or self-care (01) ==
LOC: JASU-SURG 04:17
PROVIDERS: ATTEND Pain Medicine Pain Medicine
PROC: 3E0U3BZ Introduction of Anesthetic Agent into Joints, Percutaneous Approach (ICD-10-PCS; 2021-05-09)
PROC: 3E0U33Z Introduction of Anti-inflammatory into Joints, Percutaneous Approach (ICD-10-PCS; principal; 2021-05-09 11:23)
DX: M53.3 Sacrococcygeal disorders, not elsewhere classified (principal)
CPT/HCPCS: 76000-TC-FY

== ENCOUNTER 2021-06-06 04:35 | Day surgery (SDC) | payer OTHER ==
[2021-06-04 13:29] VITALS: BMI 27.3
[2021-06-06] MEDS ORDERED: BUPIVACAINE HCL/PF 0.5% (5MG/ML) 10 ML VIAL IJ ONE (10:24)
[2021-06-06] MEDS ORDERED: IOHEXOL 180 MG/1 ML ML IJ ONE (10:25)
[2021-06-06] MEDS ORDERED: LIDOCAINE HCL 1% PRESERVATIVE FREE - 30ML VIAL IJ ONE (10:26)
[2021-06-06] MEDS ORDERED: TRIAMCINOLONE ACET 40MG/1ML VIAL IM ONE (10:27)
[2021-06-06 11:02] VITALS: BP 113/71; PULSE 65; TEMP 98.4
== END 2021-06-06 11:04 | disposition home or self-care (01) ==
LOC: JASU-SURG 04:35
PROVIDERS: ATTEND Pain Medicine Pain Medicine
PROC: 3E0U3BZ Introduction of Anesthetic Agent into Joints, Percutaneous Approach (ICD-10-PCS; 2021-06-06)
PROC: 3E0U33Z Introduction of Anti-inflammatory into Joints, Percutaneous Approach (ICD-10-PCS; principal; 2021-06-06 09:45)
DX: M53.3 Sacrococcygeal disorders, not elsewhere classified (principal)
CPT/HCPCS: 76000-TC-FY

== ENCOUNTER 2021-08-05 04:21 | Day surgery (SDC) | payer OTHER ==
[2021-07-22 17:47] VITALS: BMI 27.3
[2021-08-05] MEDS ORDERED: LIDOCAINE HCL/PF 1% SDV 5ML VIAL ONE (07:16)
[2021-08-05] MEDS ORDERED: BUPIVACAINE HCL/PF 0.5% (5MG/ML) 10 ML VIAL ONE (07:16)
[2021-08-05] MEDS ORDERED: BUPIVACAINE HCL/PF 0.75% 10 ML VIAL ONE (07:16)
[2021-08-05 07:17] VITALS: TEMP 97.8
[2021-08-05] MEDS ORDERED: LIDOCAINE HCL 1%, 10 MG/ML (20ML VIAL) PNB ONE (13:36)
[2021-08-05] MEDS ORDERED: IOHEXOL 180 MG/1 ML ML IJ ONE (13:37)
[2021-08-05] MEDS ORDERED: BUPIVACAINE HCL/PF 0.75% 10 ML VIAL PNB ONE (13:38)
[2021-08-05 15:13] VITALS: BP 110/70; PULSE 78
== END 2021-08-05 14:30 | disposition home or self-care (01) ==
LOC: JASU-SURG 04:21
PROVIDERS: ATTEND Pain Medicine Pain Medicine
PROC: 3E0T33Z Introduction of Anti-inflammatory into Peripheral Nerves and Plexi, Percutaneous Approach (ICD-10-PCS; 2021-08-05)
PROC: 3E0T3BZ Introduction of Anesthetic Agent into Peripheral Nerves and Plexi, Percutaneous Approach (ICD-10-PCS; principal; 2021-08-05 08:00)
DX: M47.816 Spondylosis without myelopathy or radiculopathy, lumbar region (principal)
CPT/HCPCS: 76000-TC-FY

== ENCOUNTER 2021-08-05 08:51 | Emergency (ER) | payer OTHER ==
[2021-08-05 09:01] VITALS: TEMP 98; BMI 28.2
[2021-08-05 10:11] VITALS: BP 106/57; PULSE 55
[2021-08-05] MEDS ORDERED: SODIUM BICARBONATE 8.4% - 100 ML ONE (10:33)
== END 2021-08-05 10:20 | disposition home or self-care (01) ==
LOC: JER 08:51
DX: R47.1 Dysarthria and anarthria (principal)
CPT/HCPCS: 82962; 99283-25

== ENCOUNTER 2021-09-05 04:15 | Day surgery (SDC) | payer OTHER ==
[2021-08-29 15:42] VITALS: BMI 27.4
[2021-09-05] MEDS ORDERED: DEXAMETHASONE SOD PHOSPHATE 10 MG/1 ML VIAL ONE (10:25)
[2021-09-05] MEDS ORDERED: PROPOFOL 20 ML ONE (10:37)
[2021-09-05] MEDS ORDERED: MIDAZOLAM HCL 2 MG/2 ML SINGLE DOSE VIAL ONE (10:38)
[2021-09-05] MEDS ORDERED: KETOROLAC TROMETHAMINE 30 MG/1 ML VIAL ONE (10:38)
[2021-09-05] MEDS ORDERED: ONDANSETRON 4 MG/2 ML VIAL ONE (10:38)
[2021-09-05] MEDS ORDERED: LIDOCAINE HCL 1% PRESERVATIVE FREE - 30ML VIAL IJ ONE ×4 (10:55→11:02)
[2021-09-05] MEDS ORDERED: DEXAMETHASONE SOD PHOSPHATE 10 MG/1 ML VIAL IVPUSH ONE ×3 (10:55→11:23)
[2021-09-05] MEDS ORDERED: IOHEXOL 300 MG/ML INFUS..BTL IV ONE ×3 (10:56→11:06)
[2021-09-05 12:17] VITALS: BP 115/67; PULSE 58; TEMP 97.8
== END 2021-09-05 12:00 | disposition home or self-care (01) ==
LOC: JASU-SURG 04:15
PROVIDERS: ATTEND Pain Medicine Pain Medicine
PROC: 3E0R33Z Introduction of Anti-inflammatory into Spinal Canal, Percutaneous Approach (ICD-10-PCS; 2021-09-05)
PROC: B01BYZZ Fluoroscopy of Spinal Cord using Other Contrast (ICD-10-PCS; 2021-09-05)
PROC: 3E0R3BZ Introduction of Anesthetic Agent into Spinal Canal, Percutaneous Approach (ICD-10-PCS; principal; 2021-09-05 11:30)
DX: M54.16 Radiculopathy, lumbar region (principal); M48.061 Spinal stenosis, lumbar region without neurogenic claudication
CPT/HCPCS: 76000-TC-FY; J1100

== ENCOUNTER 2021-10-03 05:06 | Day surgery (SDC) | payer OTHER ==
[2021-10-02 13:30] VITALS: BMI 27.4
[2021-10-03 13:24] VITALS: BP 146/88; PULSE 66; TEMP 97.7
== END 2021-10-03 13:35 | disposition home or self-care (01) ==
LOC: JASU-SURG 05:06
PROVIDERS: ATTEND Pain Medicine Pain Medicine
PROC: 3E0R3BZ Introduction of Anesthetic Agent into Spinal Canal, Percutaneous Approach (ICD-10-PCS; principal; 2021-10-03)
PROC: 3E0R33Z Introduction of Anti-inflammatory into Spinal Canal, Percutaneous Approach (ICD-10-PCS; 2021-10-03)
DX: M54.16 Radiculopathy, lumbar region (principal); M54.59 Other low back pain
CPT/HCPCS: 76000-TC-FY; J1100

== ENCOUNTER 2022-06-23 04:39 | Day surgery (SDC) | payer OTHER ==
[2022-06-19 10:24] VITALS: BMI 27.4
[2022-06-23] MEDS ORDERED: LIDOCAINE HCL/PF 1% SDV 5ML VIAL ONE (07:15)
[2022-06-23] MEDS ORDERED: BUPIVACAINE HCL/PF 0.75% 10 ML VIAL ONE (07:15)
[2022-06-23] MEDS ORDERED: BUPIVACAINE HCL 50 ML ONE (07:15)
[2022-06-23] MEDS ORDERED: DEXAMETHASONE SOD PHOSPHATE 10 MG/1 ML VIAL ONE (07:15)
[2022-06-23] MEDS ORDERED: LIDOCAINE HCL/PF 2% SDV 5ML VIAL ONE (07:19)
[2022-06-23] MEDS ORDERED: PROPOFOL 20 ML ONE (11:27)
[2022-06-23] MEDS ORDERED: MIDAZOLAM HCL 2 MG/2 ML SINGLE DOSE VIAL ONE (11:28)
[2022-06-23] MEDS ORDERED: LIDOCAINE HCL 1% PRESERVATIVE FREE - 30ML VIAL IJ ONE (11:36)
[2022-06-23] MEDS ORDERED: DEXAMETHASONE SOD PHOSPHATE 10 MG/1 ML VIAL IVPUSH ONE (11:36)
[2022-06-23] MEDS ORDERED: BUPIVACAINE HCL/PF 0.5% (5MG/ML) 10 ML VIAL IJ ONE (11:37)
[2022-06-23] MEDS ORDERED: LIDOCAINE HCL 2% (50ML VIAL) NR ONE (11:38)
[2022-06-23 13:05] VITALS: RESP 18
[2022-06-23 13:22] VITALS: BP 109/70; PULSE 60; TEMP 97.9
== END 2022-06-23 12:45 | disposition home or self-care (01) ==
LOC: JASU-SURG 04:39
PROVIDERS: ATTEND Pain Medicine Pain Medicine
PROC: 3E0T3TZ Introduction of Destructive Agent into Peripheral Nerves and Plexi, Percutaneous Approach (ICD-10-PCS; principal; 2022-06-23 11:00)
DX: M47.812 Spondylosis without myelopathy or radiculopathy, cervical region (principal)
CPT/HCPCS: 76000-TC-FY; J1100

== ENCOUNTER 2022-07-24 04:26 | Day surgery (SDC) | payer OTHER ==
[2022-07-23 18:19] VITALS: BMI 27.4
[~2022-07-24 04:26] MED LIST changes: +BUPIVACAINE HCL/PF 0.5% (5MG/ML) 10 ML VIAL IJ ONE; +DEXAMETHASONE SOD PHOSPHATE 10 MG/1 ML VIAL IM ONE; -IOHEXOL 180 MG/1 ML ML IJ ONE; +LIDOCAINE HCL 1% PRESERVATIVE FREE - 30ML VIAL IJ ONE; +LIDOCAINE HCL/PF 2% SDV 5ML VIAL INF ONE
[2022-07-24] MEDS ORDERED: BUPIVACAINE HCL/PF 0.5% (5MG/ML) 10 ML VIAL ONE (07:45)
[2022-07-24] MEDS ORDERED: LIDOCAINE HCL/PF 1% SDV 5ML VIAL ONE (07:45)
[2022-07-24] MEDS ORDERED: BUPIVACAINE HCL/PF 0.75% 10 ML VIAL ONE (07:45)
[2022-07-24] MEDS ORDERED: DEXAMETHASONE SOD PHOSPHATE 10 MG/1 ML VIAL ONE (07:46)
[2022-07-24] MEDS ORDERED: LIDOCAINE HCL/PF (2%) 40 MG/2 ML VIAL ONE (08:01)
[2022-07-24] MEDS ORDERED: ONDANSETRON 4 MG/2 ML VIAL IVPUSH PRN (11:01)
[2022-07-24] MEDS ORDERED: ACETAMINOPHEN 325 MG TABLET (FP) PO PRN (11:01)
[2022-07-24] MEDS ORDERED: LACTATED RINGERS SOLUTION 1,000 ML IV SCH (11:15)
[2022-07-24] MEDS ORDERED: MIDAZOLAM HCL 2 MG/2 ML SINGLE DOSE VIAL ONE (11:29)
[2022-07-24] MEDS ORDERED: PROPOFOL 20 ML ONE (11:29)
[2022-07-24] MEDS ORDERED: LIDOCAINE HCL 1% PRESERVATIVE FREE - 30ML VIAL IJ ONE (12:00)
[2022-07-24] MEDS ORDERED: LIDOCAINE HCL/PF 2% SDV 5ML VIAL INF ONE ×2 (12:00→12:20)
[2022-07-24] MEDS ORDERED: DEXAMETHASONE SOD PHOSPHATE 10 MG/1 ML VIAL IM ONE ×2 (12:00→12:20)
[2022-07-24] MEDS ORDERED: BUPIVACAINE HCL/PF 0.5% (5MG/ML) 10 ML VIAL IJ ONE ×2 (12:00→12:24)
[2022-07-24 14:09] VITALS: RESP 18
[2022-07-24 14:11] VITALS: BP 103/72; PULSE 64
[2022-07-24 14:14] VITALS: TEMP 97.8
== END 2022-07-24 13:00 | disposition home or self-care (01) ==
LOC: JASU-SURG 04:26
PROVIDERS: ATTEND Pain Medicine Pain Medicine
PROC: 3E0T3TZ Introduction of Destructive Agent into Peripheral Nerves and Plexi, Percutaneous Approach (ICD-10-PCS; principal; 2022-07-24 11:15)
PROC: BR16YZZ Fluoroscopy of Lumbar Facet Joint(s) using Other Contrast (ICD-10-PCS; 2022-07-24 11:15)
DX: M47.812 Spondylosis without myelopathy or radiculopathy, cervical region (principal)
CPT/HCPCS: 76000-TC-FY; J1100

== ENCOUNTER 2023-01-08 06:24 | Day surgery (SDC) | payer OTHER ==
[2022-12-29 14:13] VITALS: BMI 27.2
[2023-01-08] MEDS ORDERED: BUPIVACAINE HCL/PF 0.5% (5 MG/ML) 30 ML VIAL IJ ONE (07:36)
[2023-01-08] MEDS ORDERED: DEXAMETHASONE SOD PHOSPHATE/PF 10 MG/ML SDV ONE (07:36)
[2023-01-08] MEDS ORDERED: MIDAZOLAM HCL 2 MG/2 ML SINGLE DOSE VIAL ONE ×3 (07:37→09:20)
[2023-01-08] MEDS ORDERED: FENTANYL CITRATE/PF 50 MCG/ML VIAL ONE (07:37)
[2023-01-08] MEDS ORDERED: PROPOFOL 60 ML ONE (09:20)
[2023-01-08] MEDS ORDERED: ceFAZolin SODIUM 1 GM VIAL ONE (09:56)
[2023-01-08] MEDS ORDERED: DEXAMETHASONE SOD PHOSPHATE 4 MG/1 ML VIAL ONE (09:58)
[2023-01-08] MEDS ORDERED: ONDANSETRON 4 MG/2 ML VIAL ONE ×2 (09:58→12:18)
[2023-01-08] MEDS ORDERED: KETOROLAC TROMETHAMINE 30 MG/1 ML VIAL ONE (09:58)
[2023-01-08] MEDS ORDERED: HYDROmorphone HCL/PF 1 MG/ML VIAL ONE (11:43)
[2023-01-08] MEDS ORDERED: PROPOFOL 20 ML ONE (11:46)
[2023-01-08 16:04] VITALS: TEMP 98.2
[2023-01-08 16:36] VITALS: BP 104/62; PULSE 59; RESP 18
== END 2023-01-08 15:50 | disposition home or self-care (01) ==
LOC: FASU 06:24
PROVIDERS: ATTEND Orthopaedic Surgery
PROC: 0RCJ4ZZ Extirpation of Matter from Right Shoulder Joint, Percutaneous Endoscopic Approach (ICD-10-PCS; 2023-01-08)
PROC: 0LX Tendons, Transfer (ICD-10-PCS; principal; 2023-01-08 10:12)
PROC: 0RBJ4ZZ Excision of Right Shoulder Joint, Percutaneous Endoscopic Approach (ICD-10-PCS; 2023-01-08 10:12)
DX: S46.011D Strain of muscle(s) and tendon(s) of the rotator cuff of right shoulder, subsequent encounter (principal); M25.311 Other instability, right shoulder; M75.51 Bursitis of right shoulder; M65.811 Other synovitis and tenosynovitis, right shoulder; S43.431D Superior glenoid labrum lesion of right shoulder, subsequent encounter; M75.01 Adhesive capsulitis of right shoulder; M19.011 Primary osteoarthritis, right shoulder; T84.190A Other mechanical complication of internal fixation device of right humerus, initial encounter; Y79.1 Therapeutic (nonsurgical) and rehabilitative orthopedic devices associated with adverse incidents; Y92.9 Unspecified place or not applicable; X58.XXXD Exposure to other specified factors, subsequent encounter; X58.XXXA Exposure to other specified factors, initial encounter
CPT/HCPCS: 94760; C1713; C1769

== ENCOUNTER 2023-07-03 06:02 | Emergency (ER) | payer BC ==
[2023-07-03] MEDS ORDERED: SODIUM CHLORIDE 0.9% 500 ML INFUS.BAG IV ONE (06:10)
[2023-07-03] MEDS ORDERED: ONDANSETRON 4 MG/2 ML VIAL IVPUSH ONE (06:10)
[2023-07-03 06:25] VITALS: BP 128/84; PULSE 95; RESP 18; TEMP 97.8; BMI 26.6
[2023-07-03] MEDS ORDERED: ONDANSETRON 4 MG/2 ML VIAL ONE (06:31)
[2023-07-03 07:03] LABS: BASO % 0.8 % (0-2.0); EOS % 1.5 % (0-4.5); HEMATOCRIT 36.8 % (32.4-45.2); LYMPH % 14.2 % (8-40); MCH 30.1 pg (25.7-33.7); MCHC 32.7 g/dl (32.0-36.0); MEAN CELL VOLUME 91.8 fl (80-96); MEAN PLT VOLUME 7.5 fl (7.5-11.1); MONO % 7.7 % (3.8-10.2); NEUT % 75.8 % (42.8-82.8); PLATELET COUNT 285 10^3/uL (134-434); RDW 13.8 % (11.6-15.6); WHITE BLOOD COUNT 9.4 K/mm3 (4.0-10.0)
[2023-07-03 07:08] LABS: POTASSIUM 3.8 mmol/L (3.5-5.1)
[2023-07-03 07:11] LABS: ALBUMIN 3.4 g/dl (3.4-5.0); CALCIUM 8.6 mg/dL (8.5-10.1)
[2023-07-03 07:14] LABS: CREATININE 0.9 mg/dL (0.55-1.3)
[2023-07-03 07:17] LABS: BILIRUBIN,TOTAL 0.1 mg/dL (0.2-1); TOT PROT 6.6 g/dl (6.4-8.2)
[2023-07-03] MEDS ORDERED: ACETAMINOPHEN 1000 MG/100 ML BAG IVPB ONE (07:58)
[2023-07-03] MEDS ORDERED: ACETAMINOPHEN INJECTION 100 ML IVPB ONE (08:30)
== END 2023-07-03 11:15 | disposition home or self-care (01) ==
LOC: JER 06:02
PROC: 3E033NZ Introduction of Analgesics, Hypnotics, Sedatives into Peripheral Vein, Percutaneous Approach (ICD-10-PCS; principal; 2023-07-03)
PROC: 3E033GC Introduction of Other Therapeutic Substance into Peripheral Vein, Percutaneous Approach (ICD-10-PCS; 2023-07-03)
DX: F41.9 Anxiety disorder, unspecified (principal); T42.4X1A Poisoning by benzodiazepines, accidental (unintentional), initial encounter; R11.0 Nausea
CPT/HCPCS: 36415; 80053; 84703; 85025; 93005; 93010; 99284-25

== ENCOUNTER 2023-11-29 06:11 | Day surgery (SDC) | payer OTHER ==
[2023-11-24 16:59] VITALS: BMI 25.0
[2023-11-29] MEDS ORDERED: oxyCODONE HCL 5 MG TABLET PO PRN (07:09)
[2023-11-29] MEDS ORDERED: ACETAMINOPHEN 325 MG TABLET (FP) PO PRN (07:09)
[2023-11-29] MEDS ORDERED: ONDANSETRON 4 MG/2 ML VIAL IVPUSH PRN (07:09)
[2023-11-29] MEDS ORDERED: VANCOMYCIN 1,000 MG VIAL (RESTRICTED TO ID ONLY) ONE (07:22)
[2023-11-29] MEDS ORDERED: DEXAMETHASONE SOD PHOSPHATE/PF 10 MG/ML SDV ONE (07:23)
[2023-11-29] MEDS ORDERED: BUPIVACAINE HCL/PF 0.5% (5 MG/ML) 30 ML VIAL IJ ONE (07:23)
[2023-11-29] MEDS ORDERED: MIDAZOLAM HCL 2 MG/2 ML SINGLE DOSE VIAL ONE ×2 (07:23→07:53)
[2023-11-29] MEDS ORDERED: ACETAMINOPHEN INJECTION 100 ML IVPB ONE (07:24)
[2023-11-29] MEDS ORDERED: FENTANYL CITRATE/PF 50 MCG/ML VIAL ONE (07:39)
[2023-11-29] MEDS ORDERED: PROPOFOL 20 ML ONE ×2 (07:53→10:08)
[2023-11-29] MEDS ORDERED: KETOROLAC TROMETHAMINE 30 MG/1 ML VIAL ONE (09:09)
[2023-11-29] MEDS ORDERED: DEXAMETHASONE SOD PHOSPHATE 4 MG/1 ML VIAL ONE (09:09)
[2023-11-29] MEDS: VANCOMYCIN 1,000 MG VIAL (RESTRICTED TO ID ONLY) IVPB ONE (09:47)
[2023-11-29] MEDS ORDERED: ALPRAZolam 2 MG TABLET PO PRN (10:52)
[2023-11-29] MEDS: TRANEXAMIC ACID 1000 MG/10 ML VIAL IVPUSH ONE (12:37)
[2023-11-29] MEDS: LACTATED RINGERS SOLUTION 1,000 ML IV SCH (12:37)
[2023-11-29] MEDS: oxyCODONE HCL 5 MG TABLET PO PRN (13:51)
[2023-11-29] MEDS: CEFAZOLIN SODIUM 2 GM in DEXTROSE 5%-WATER 100 ML IVPB SCH (16:48)
[2023-11-29] MEDS: VANCOMYCIN/WATER FOR INJ (PEG) 1 GM/200 ML BAG IVPB ONE (19:55)
[2023-11-29] MEDS: TOPIRAMATE 100 MG TABLET PO SCH (21:20)
[2023-11-29] MEDS: hydrOXYzine PAMOATE 25 MG CAPSULE (FP) PO SCH (21:20)
[2023-11-29] MEDS: ATORVASTATIN CA 20 MG TABLET (FP) PO SCH (21:20)
[2023-11-29] MEDS: DIVALPROEX SODIUM 250 MG TABLET E.C. PO SCH (21:20)
[2023-11-29] MEDS: ALPRAZolam 1 MG TABLET PO PRN (21:21)
[2023-11-30] MEDS: LEVOTHYROXINE NA 88 MCG TABLET (FP) PO SCH (06:13)
[2023-11-30] MEDS: ASPIRIN 325 MG ENTERIC COATED TABLET (FP) PO SCH (09:20)
[2023-11-30] MEDS: ARIPiprazole 5 MG TABLET PO SCH (09:21)
[2023-11-30 09:41] VITALS: BP 116/61; PULSE 85; RESP 18; TEMP 98.8
[2023-11-30 10:44] LABS: CALCIUM 8.2 mg/dl (8.5-10.1); CREATININE 1.1 mg/dl (0.6-1.3); POTASSIUM 3.4 mmol/L (3.5-5.1)
[2023-11-30 12:26] LABS: BASO % 0.7 % (0-2.0); EOS % 0.7 % (0-4.5); HEMATOCRIT 28.6 % (32.4-45.2); HEMOGLOBIN 9.4 GM/dL (10.7-15.3); LYMPH % 16.9 % (8-40); MCH 29.6 pg (25.7-33.7); MCHC 32.7 g/dl (32.0-36.0); MEAN CELL VOLUME 90.4 fl (80-96); MEAN PLT VOLUME 8.8 fl (7.5-11.1); MONO % 9.2 % (3.8-10.2); NEUT % 72.5 % (42.8-82.8); PLATELET COUNT 212 10^3/uL (134-434); RBC 3.16 M/mm3 (3.60-5.2); RDW 15.7 % (11.6-15.6); WHITE BLOOD COUNT 10.3 K/mm3 (4.0-10.0)
[2023-11-30] MEDS: POTASSIUM CHLORIDE ORAL LIQUID 20 MEQ/15 ML PO ONE (12:43)
== END 2023-11-30 13:05 | disposition home or self-care (01) ==
LOC: FASUSAT 06:11 → FM/S 12:03 → FASUSAT 11-30 13:05
PROC: 0LS30ZZ Reposition Right Upper Arm Tendon, Open Approach (ICD-10-PCS; 2023-11-29)
PROC: 0RRJ0JZ Replacement of Right Shoulder Joint with Synthetic Substitute, Open Approach (ICD-10-PCS; principal; 2023-11-29 08:26)
DX: M19.011 Primary osteoarthritis, right shoulder (principal); M75.101 Unspecified rotator cuff tear or rupture of right shoulder, not specified as traumatic; M75.21 Bicipital tendinitis, right shoulder; T84.098A Other mechanical complication of other internal joint prosthesis, initial encounter; Y79.1 Therapeutic (nonsurgical) and rehabilitative orthopedic devices associated with adverse incidents; Y92.9 Unspecified place or not applicable
CPT/HCPCS: 20680; 23430; 23472; C1776; 36415; 73030-TC-RT-FY; 80048; 85025; 88300-TC; 88304-TC; 88311-TC; 94760; 97010-GP; 97116-GP; 97162-GP; C1713; C1757; C1889; J0131